=== PATIENT | female | born 1935 | race African-American/Black ===

== ENCOUNTER 2018-10-15 08:36 | Inpatient (IN) | payer MEDICARE, OTHER ==
[~2018-10-15] VITALS: Ht 165.1 cm; Wt 72.1 kg
[2018-10-15] VITALS (23 sets, daily range): BP systolic 80–117; BP diastolic 21–76
[~2018-10-15 08:36] MED LIST: BENA40TA17 PO; FURO-570 PO
--- NOTE | 2018-10-15 08:37 | NUR ---
PT BIBA BLS TO ER BED 04
--- NOTE | 2018-10-15 08:47 | NUR ---
Patient being evaluated by DR NY at bedside.
--- NOTE | 2018-10-15 08:50 | NUR ---
BIBA C/O HEADACHE & RIGHT HIP PAIN 12/02 S/P SYNCOPE & FALL X TODAY. C/O BLL SWOLLEN. A/O, TALKING, APPROPRIATE WITH QUESTIONS. PATIENT POSITIONED FOR COMFORT; BLL ELEVATED; BEDRAILS UP X2; BED DOWN. BRIGIDO CHAPA MADE AWARE OF PT STATUS. Addendum: 10/15/18 at 1031 by MED1 PT STATED SHE DID NOT TAKE WATER PILLX 2 DAYS.
[2018-10-15] MEDS ORDERED: NACL 0.9% 500 ML IV ONE (08:55)
--- NOTE | 2018-10-15 09:05 | NUR ---
LAB AT BEDSIDE
--- NOTE | 2018-10-15 09:10 | NUR ---
PT TAKEN TO CT VIA [facility], ACCOMPANIED BY ALCOHOL RUBBER
[2018-10-15 09:17] LABS: BASOPHILS # (AUTO) 0.1 K/uL (0.00-0.22); BASOPHILS % (AUTO) 1.2 % (0.0-2.0); EOSINOPHILS # (AUTO) 0.2 K/uL (0-0.4); EOSINOPHILS % (AUTO) 4.2 % (0.0-4.0); HEMATOCRIT 36.8 % (36-48); HEMOGLOBIN 11.9 g/dL (12.0-16.0); LYMPHOCYTES # (AUTO) 0.7 K/uL (2.5-16.5); LYMPHOCYTES % (AUTO) 14.2 % (20.5-51.1); MEAN CORPUSCULAR HEMOGLOBIN 29 pg (27-31); MEAN CORPUSCULAR HGB CONC 32 g/dL (33-37); MEAN CORPUSCULAR VOLUME 89.9 fL (80-94); MONOCYTES # (AUTO) 0.5 K/uL (0.8-1.0); MONOCYTES % (AUTO) 9.4 % (1.7-9.3); NEUTROPHILS # (AUTO) 3.7 K/uL (1.8-7.7); PLATELET COUNT (AUTO) 146 K/uL (140-450); RED BLOOD CELL COUNT(AUTO) 4.09 MIL/uL (4.20-5.40); RED CELL DISTRIBUTION WIDTH 21.5 % (11.6-13.7); WHITE BLOOD COUNT (AUTO) 5.2 K/uL (4.8-10.8)
[2018-10-15 09:26] LABS: CARBON DIOXIDE 26.4 mmol/L (21-32); CHLORIDE 102 mmol/L (98-107); CREATININE 1.8 mg/dL (0.6-1.3); GLUCOSE 131 mg/dL (74-106); POTASSIUM 3.4 mmol/L (3.5-5.1); SODIUM SERUM 141 mmol/L (136-145); UREA NITROGEN, BLOOD 16 mg/dL (7-18)
[2018-10-15 09:32] LABS: ALBUMIN 3.4 g/dL (3.4-5.0); ASPARTATE AMINOTRANSFERASE 61 U/L (15-37); TOTAL BILIRUBIN 2.2 mg/dL (0.0-1.0)
[2018-10-15 09:36] LABS: PROTHROMBIN TIME 13.4 secs (10.8-13.4)
[2018-10-15] MEDS ORDERED: NITROGLYCERIN 2% 1 GM PKT TP ONE (10:00)
[2018-10-15] MEDS ORDERED: ASPIRIN 81 MG TAB.CHEW PO ONE (10:00)
[2018-10-15 10:10] LABS: APPEARANCE,URINE CLEAR (CLEAR); BILIRUBIN,URINE 2+ (NEGATIVE); BLOOD, URINE 1+ (NEGATIVE); COLOR,URINE ORANGE (YELLOW); LEUKOCYTE ESTERASE ,URINE NEGATIVE (NEGATIVE); NITRITE, URINE NEGATIVE (NEGATIVE); PH,URINE 5.5 (5.0-9.0); UGLUCOSE NEGATIVE (NEGATIVE)
[2018-10-15 10:22] LABS: RBC,URINE 0-5 /HPF (0-5); WBC,URINE 0-5 /HPF (0-5)
[2018-10-15] MEDS ORDERED: LOSA25TA43 PO (11:03)
[2018-10-15] MEDS ORDERED: ALBU117P IH (11:03)
[2018-10-15] MEDS ORDERED: APIX5TAB PO (11:03)
[2018-10-15] MEDS ORDERED: ATOR40TA PO (11:03)
[2018-10-15] MEDS ORDERED: CARV6.25 PO (11:03)
[2018-10-15] MEDS ORDERED: MEXI150C2 PO (11:03)
--- NOTE | 2018-10-15 11:20 | NUR ---
Patient will be admitted to care of DR TINOCO. Admited to TELE. Will go to room 127A. Belongings list completed. Report to VICKY WOODY.
--- NOTE | 2018-10-15 11:40 | NUR ---
PT ARRIVED FROM ER IN [facility] [place] PT AWAKE ALERT, OX4, RESP EVEN UNALBORED ON 2L NC, SKIN WARM DRY COLOR WNL, PT PLACED ON FILM INSPECTOR, PT DENIES CHEST PAIN OR DISCOMFORT, PT TRANSFERS SELF FROM [facility] [place] TO BED BY MANINDER OVER, PT ORIENTED TO ROOM AND FLOOR, ALL SAFETY MEASURES IN PLACE, WILL CONTINUE OT RADHA
[2018-10-15] MEDS ORDERED: ONDANSETRON 4 MG/2 ML VIAL IVP PRN (12:15)
[2018-10-15] MEDS ORDERED: NACL 0.9% 1,000 ML IV SCH (12:15)
[2018-10-15] MEDS ORDERED: ALBUTEROL SULFATE 90 MCG IH PRN (12:20)
[2018-10-15] MEDS ORDERED: FUROSEMIDE 40 MG TAB PO SCH (12:20)
--- NOTE | 2018-10-15 12:50 | NUR ---
PT WANTS NEW IV, PT DOES NOT LIKE THE CURRENT IV POSITION IN R AC, PT PEELED OFF DRESSING AROUND IV, PT REQUESTS NEW IV STARTED TO LEFT ARM, NEW IV STARTED TO LEFT FA 22G, PT MINERVA WELL, RAC IV REMOVED, CATH TIP INTACT, BLEEDING CONTROLLED.
[2018-10-15] MEDS ORDERED: CLINICAL MONITORING MC PRN (13:00)
[2018-10-15] MEDS ORDERED: COMMUNICATION ORDER MC PRN (14:20)
[2018-10-15] MEDS ORDERED: CARVEDILOL 6.25 MG TAB PO SCH (15:00)
[2018-10-15] MEDS ORDERED: LOSARTAN 25 MG TAB PO SCH (15:00)
[2018-10-15] MEDS ORDERED: MEXILETINE 150MG CAP PO SCH (15:11)
[2018-10-15] MEDS ORDERED: NACL 0.9% 500 ML IV SCH (15:30)
--- NOTE | 2018-10-15 15:44 | NUR ---
DR FRIEDMAN, Y NOTIFIED OF PT'S EPISODE OF V FIB, VERBAL ORDER RECIEVED. OK TO GIVE HOME CARDIAC MEDS AND GIVE 250ML NS BOLUS X1 FOR DECREASED BP 92/58. PT SLEEPING QUIETLY, AROUSES EASILY BY VOICE, PT REMAINS ON LOOM SETTER, WILL CONTINUE TO MONITOR
--- NOTE | 2018-10-15 16:05 | NUR ---
PT TRANSFERRED ICU #1 ACCOMPANIED BY RN ON MACHINE GUNNER, PT AWAKE ALERT, VITALS STABLE, REPORT GIVEN TO BONG MORGAN.
--- NOTE | 2018-10-15 16:10 | NUR ---
RECEIVED PT TRANSFERRED FROM ROOM 127A, REPORT OBTAINED AT BEDSIDE, PT IS AAOX4, ABLE TO FOLLOW COMMANDS AND MAKE NEEDS KNOWN, VSS, C/O LOWER BACK PAIN, 3/10 TOLERABLE, NO S/S OF DISTRESS, DIMINISHED LUNG SOUNDS YOEL,ON O2 AT 2L VIA NC, O2 SAT 96%, DENIES CHEST PAIN, A-FIB WITH PVC'S ON HIGH ENERGY FORMING EQUIPMENT OPERATOR, PACEMAKER NOTED, SOFT ABDOMEN WITH ACTIVE BOWEL SOUNDS, INCONTINENT WITH B&B'S , ABLE TO MOVE ALL EXTREMITIES, SLIGHT WEAKNESS NOTED, SKIN IS WARM AND DRY TO TOUCH, INTACT, IV SITE TO LEFT FOREARM, 22GA, PATENT AND SL. HOB ELEVATED 30 DEGREES, POSITION CHANGED FOR COMFORT, SAFETY MEASURES IN PLACE, WILL CONTINUE TO MONITOR.
[2018-10-15] MEDS ORDERED: AMIODARONE 150 MG in DEXTROSE 5% 100 ML IV SCH (16:30)
[2018-10-15] MEDS ORDERED: AMIODARONE 450 MG in DEXTROSE 5% 250 ML IV SCH (16:45)
--- NOTE | 2018-10-15 17:05 | NUR ---
DR. TINOCO CAME IN TO SEE PT AT BEDSIDE, WILL FOLLOW UP WITH NEW ORDERS.
--- NOTE | 2018-10-15 18:00 | NUR ---
PT IS SITTING UP EATING DINNER AT BEDSIDE, STEPHEN NOTED, VSS, STILL C/O LOWER BACK PAIN COMES AND GOES.
--- NOTE | 2018-10-15 19:00 | NUR ---
REPORT RECEIVED FROM AM NURSE. PT AT BED RESTING, IV FLUIDS RUNNING, PT ALERT AND ORIENTED X4, CALM, COOPERATIVE, FOLLOWS COMMANDS, PERRLA 3MM, S1 S2 PRESENT, HR REGULAR, FULL, PULSE 2+ UPPER EXTREMITIES BILATERAL, 2+ LOWER EXTREMITIES BILATERAL, CAP REFILL <3S, PULSES REGULAR, FULL, SKIN INTACT, NON-ELASTIC, NO EDEMA PRESENT, BOWEL SOUNDS PRESENT AT ALL QUADRANTS, ACTIVE, PT ON O2 NC RUNNING AT 2L, MUSCLE STRENGTH 5/5 ON UPPER EXTREMITIES AND LOWER EXTREMITIES, WILL CONTINUE TO MONITOR
--- NOTE | 2018-10-15 19:15 | NUR ---
REPORT GIVEN TO MATERIALS AND PROCESSES MANAGER NURSE FOR CONTINUE OF CARE, PT IS IN STABLE CONDITION AT THIS TIME.
[2018-10-15] MEDS: APIXABAN 2.5 MG TAB PO SCH (20:37)
[2018-10-15] MEDS: MEXILETINE 150MG CAP PO SCH (20:38)
[2018-10-15] MEDS: ATORVASTATIN 20 MG TAB PO SCH (20:39)
--- NOTE | 2018-10-15 20:50 | NUR ---
BP 83/53, AMIODARONE DRIP HOLD OR STOPPED; DR. Johny FRIEDMAN WAS INFORMED AND AWARE.
[2018-10-15] MEDS: CARVEDILOL 6.25 MG TAB PO SCH (20:57)
[2018-10-15] MEDS ORDERED: NON-FORMULARY ITEM (Apixaban (Eliquis) 5 MG) PO SCH (21:00)
--- NOTE | 2018-10-15 21:00 | NUR ---
PT SLEEPING AT BED. VS WNL. WILL CONTINUE TO MONITOR
--- NOTE | 2018-10-15 23:00 | NUR ---
PT SLEEPING AT BED, VS WNL, WILL CONTINUE TO MONITOR
[2018-10-16] VITALS (21 sets, daily range): BP systolic 81–164; BP diastolic 37–71
--- NOTE | 2018-10-16 01:00 | NUR ---
PT SLEEPING AT BED, VS WNL, WILL CONTINUE TO MONITOR.
[2018-10-16 05:15] LABS: BASOPHILS % (AUTO) 0.5 % (0.0-2.0); EOSINOPHILS # (AUTO) 0.1 K/uL (0-0.4); EOSINOPHILS % (AUTO) 1.9 % (0.0-4.0); HEMATOCRIT 35.2 % (36-48); HEMOGLOBIN 11.6 g/dL (12.0-16.0); LYMPHOCYTES # (AUTO) 0.5 K/uL (2.5-16.5); LYMPHOCYTES % (AUTO) 12.4 % (20.5-51.1); MEAN CORPUSCULAR HEMOGLOBIN 29 pg (27-31); MEAN CORPUSCULAR HGB CONC 33 g/dL (33-37); MEAN CORPUSCULAR VOLUME 89.3 fL (80-94); MONOCYTES # (AUTO) 0.5 K/uL (0.8-1.0); MONOCYTES % (AUTO) 11.8 % (1.7-9.3); NEUTROPHILS # (AUTO) 3.2 K/uL (1.8-7.7); NEUTROPHILS % (AUTO) 73.4 % (42.2-75.2); PLATELET COUNT (AUTO) 132 K/uL (140-450); RED BLOOD CELL COUNT(AUTO) 3.94 MIL/uL (4.20-5.40); RED CELL DISTRIBUTION WIDTH 20.9 % (11.6-13.7); WHITE BLOOD COUNT (AUTO) 4.4 K/uL (4.8-10.8)
[2018-10-16 06:09] LABS: PROTHROMBIN TIME 15.5 secs (10.8-13.4)
[2018-10-16 06:54] LABS: ALBUMIN 2.9 g/dL (3.4-5.0); ANION GAP 15.1 (8-16); ASPARTATE AMINOTRANSFERASE 124 U/L (15-37); CARBON DIOXIDE 24.6 mmol/L (21-32); CHLORIDE 104 mmol/L (98-107); GLUCOSE 92 mg/dL (74-106); POTASSIUM 3.7 mmol/L (3.5-5.1); SODIUM SERUM 140 mmol/L (136-145); TOTAL BILIRUBIN 2.6 mg/dL (0.0-1.0); UREA NITROGEN, BLOOD 19 mg/dL (7-18)
[2018-10-16 07:07] LABS: MAGNESIUM 2.1 mg/dL (1.8-2.4); THYROID STIMULATING HORMONE 9.01 uIU/mL (0.34-3.74)
--- NOTE | 2018-10-16 07:15 | NUR ---
RECEIVED REPORT FROM JIG FITTER NURSE AT BEDSIDE, PT IS AAOX4, ABLE TO FOLLOW COMMANDS AND MAKE NEEDS KNOWN, VSS, C/O LOWER BACK PAIN, 3/10 TOLERABLE, NO S/S OF DISTRESS, DIMINISHED LUNG SOUNDS YOEL,ON O2 AT 2L VIA NC, O2 SAT 100%, DENIES CHEST PAIN, A-FIB WITH PACED RHYTHMS ON REAL TIME ANALYST, SOFT ABDOMEN WITH ACTIVE BOWEL SOUNDS, INCONTINENT WITH B&B'S , ABLE TO MOVE ALL EXTREMITIES, SLIGHT WEAKNESS NOTED, SKIN IS WARM AND DRY TO TOUCH, INTACT, IV SITE TO LEFT FOREARM, 22GA, PATENT AND SL. HOB ELEVATED 30 DEGREES, POSITION CHANGED FOR COMFORT, SAFETY MEASURES IN PLACE, CALL LIGHT WITHIN REACH, WILL CONTINUE TO MONITOR.
--- NOTE | 2018-10-16 07:20 | NUR ---
PACEMAKER INTERROGATION COULD NOT COMPLETED AT THIS TIME DUE TO COULD NOT MATCH, WILL CONTACT FAMILY ABOUT THE PACEMAKER INFORMATION.
--- NOTE | 2018-10-16 08:07 | NUR ---
PATIENT HAS BEEN SCREENED AND CATEGORIZED MODERATE NUTRITION RISK. PATIENT WILL BE SEEN WITHIN 3-5 DAYS OF ADMISSION. 10/17/18ABBI TAN RD
[2018-10-16] MEDS ORDERED: ENOXAPARIN 40 MG/0.4 ML SYR SUBQ SCH (09:00)
[2018-10-16] MEDS ORDERED: MEXILETINE HCL PO SCH (09:00)
[2018-10-16] MEDS ORDERED: LOSARTAN POTASSIUM 25 MG PO SCH (09:00)
[2018-10-16] MEDS: LOSARTAN 25 MG TAB PO SCH (09:20)
[2018-10-16] MEDS: CARVEDILOL 6.25 MG TAB PO SCH ×2 (09:21→21:00)
[2018-10-16] MEDS: APIXABAN 2.5 MG TAB PO SCH ×2 (09:23→21:24)
[2018-10-16] MEDS: MEXILETINE 150MG CAP PO SCH ×2 (09:25→21:38)
--- NOTE | 2018-10-16 10:00 | NUR ---
DR. TINOCO CAME IN TO SEE PT AT BEDSIDE, UPDATED CONDITION, WILL FOLLOW UP WITH NEW ORDERS.
[2018-10-16] MEDS: ACETAMINOPHEN 325 MG TAB PO PRN (10:12)
--- NOTE | 2018-10-16 11:30 | NUR ---
RECEIVED PHONE REPORT FROM ICU NURSE, EDDIE, ABOUT PT'S TRANSFER TO TELE.
--- NOTE | 2018-10-16 12:45 | NUR ---
RECEIVED PT FROM THE ICU NURSE. PT IS AWAKE BUT DROWSY. PT'S BP IS 87/54 AT THIS TIME, OTHERWISE NON-SYMPTOMATIC. IV SITE IS IN THE LFA 22 G. WILL NOTIFY MD ABOUT PT'S LOW BP.
--- NOTE | 2018-10-16 12:45 | NUR ---
TRANSFERRED PT TO ROOM 121B VIA BED, REPORT GIVEN TO BONG HA AT BEDSIDE, ALL BELONGS GOES WITH PT, NO INCIDENT OCCUR AT THIS TIME.
--- NOTE | 2018-10-16 12:50 | NUR ---
PT'S VS UPON TRANSFER TO [facility]: BP 87/54, HR 70, O2 99 ON 2L O2, TEMP 96.0, RR 18.
--- NOTE | 2018-10-16 13:22 | NUR ---
NOTIFIED DR TINOCO OVER THE PHONE ABOUT PT'S LOW BP, HE ORDERED IV NS 70 ML/HR. WILL CONTINUE TO MONITOR PT.
[2018-10-16] MEDS: NACL 0.9% 1,000 ML IV SCH (14:18)
--- NOTE | 2018-10-16 14:21 | NUR ---
PT SLEEPING QUIETLY AT THIS TIME, NO S/S OF ANY ACUTE DISTRESS, NO SOB. WILL CONTINUE TO MONITOR.
--- NOTE | 2018-10-16 15:13 | NUR ---
PT'S BP IS 81/47 AT THIS TIME. IV NS IS INFUSING PER MD ORDER, AND PT IS DRINKING GRAPE JUICE AND WATER. CALL LIGHT IS WITHIN REACH. WILL CONTINUE TO MONITOR PT.
--- NOTE | 2018-10-16 17:31 | NUR ---
PT'S FAMILY MEMBERS VISITING AT BEDSIDE. PT WAS REPOSITIONED IN BED.
--- NOTE | 2018-10-16 17:53 | NUR ---
PT'S DINNER TRAY SET UP, FOOD CUT UP, AND PT EATING AT THIS TIME. PT'S FAMILY MEMBERS ARE STILL VISITING AT BEDSIDE.
--- NOTE | 2018-10-16 18:27 | NUR ---
RECHECKED PT'S BP. BP OVER THE UPPER EXTREMITIES IS: 80/48 AND 81/53. OT JUST ATE DINNER AND IS ASYMPTOMATIC, TALKING WITH HER FAMILY. BP OVER THE L CALF IS 114/69. DR TINOCO PAGED TO NOTIFY OF PT'S BP, AWAITING CALL BACK. Addendum: 10/16/18 at 1838 by Lia Kenny RN DR SALVADOR (BREAKFAST SERVER FOR DR TINOCO) CALLED BACK AND WAS NOTIFIED OF PT'S LOW BP. HE ORDERED 250 ML NS BOLUS, TO RECHECK HER BP IN AN HOUR AND REPORT THE RESULTS.
[2018-10-16] MEDS ORDERED: NACL 0.9% 250 ML IV ONE (19:10)
--- NOTE | 2018-10-16 19:10 | NUR ---
ENDORSED PT TO BALANCE BRIDGE INSPECTOR NURSE IN STABLE CONDITION. BALANCE BRIDGE INSPECTOR NURSE AWARE OF PT'S LOW BP'S, AND AWARE TO NOTIFY DR SALVADOR OF PT'S BP AFTER NS BOLUS IS FINISHED.
--- NOTE | 2018-10-16 19:11 | NUR ---
RECEIVED REPORT FROM AM SHIFT AT BEDSIDE, PT IS AAOX3, ON TELE ABLE TO FOLLOW COMMANDS AND MAKE NEEDS KNOWN, VSS, C/O LOWER BACK PAIN, 3/10 TOLERABLE, NO S/S OF DISTRESS, DIMINISHED LUNG SOUNDS YOEL,ON O2 AT 2L VIA NC, O2 SAT 100%, DENIES CHEST PAIN, A-FIB WITH PACED RHYTHMS ON HYDROGEN POWER PLANT MANAGER, SOFT ABDOMEN WITH ACTIVE BOWEL SOUNDS, INCONTINENT WITH B&B'S , ABLE TO MOVE ALL EXTREMITIES, SLIGHT WEAKNESS NOTED, SKIN IS WARM AND DRY TO TOUCH, INTACT, IV SITE TO LEFT FOREARM, 22GA, PATENT AND SL. HOB ELEVATED 30 DEGREES, POSITION CHANGED FOR COMFORT, SAFETY MEASURES IN PLACE, CALL LIGHT WITHIN REACH, WILL CONTINUE TO MONITOR.
--- NOTE | 2018-10-16 21:00 | NUR ---
HELD BP MEDS; BP 93/68 MMHG, HR 71 WILL INFORM DRTomas CONTACTED RN PRACTITIONER EARLIER NO CALL BACK YET
--- NOTE | 2018-10-16 21:03 | NUR ---
O2 TURNED DOWN BY RT W/ 99% @ O2 SAT FROM 2 LPM TO 1 LPM
[2018-10-16] MEDS: ATORVASTATIN 20 MG TAB PO SCH (21:24)
--- NOTE | 2018-10-16 22:05 | NUR ---
SEEN BY DR. Karthik FRIEDMAN AT BEDSIDE
--- NOTE | 2018-10-16 23:59 | NUR ---
BP= 86/56 ' HR = 71; NO SX'S OF HYPOTENSION. O2 SAT 95% W/ 1 O2 LPM VIA NC. PT AWAKE ALERT AND COOPERATIVE. FREQUENT TURNING REQUESTED DONE.
[2018-10-17] VITALS (30 sets, daily range): BP systolic 85–128; BP diastolic 46–81
--- NOTE | 2018-10-17 02:00 | NUR ---
CALLED [facility]. SALVADOR NO REPLY
[2018-10-17] MEDS: ALBUTEROL 0.083% 2.5 MG/3 ML NEBU INH PRN ×4 (03:02→19:32)
[2018-10-17] MEDS: NACL 0.9% 1,000 ML IV SCH ×3 (04:13→21:05)
[2018-10-17 06:30] LABS: BASOPHILS % (AUTO) 0.8 % (0.0-2.0); EOSINOPHILS # (AUTO) 0.2 K/uL (0-0.4); EOSINOPHILS % (AUTO) 5.1 % (0.0-4.0); HEMATOCRIT 35.8 % (36-48); HEMOGLOBIN 11.6 g/dL (12.0-16.0); LYMPHOCYTES # (AUTO) 0.2 K/uL (2.5-16.5); LYMPHOCYTES % (AUTO) 5.4 % (20.5-51.1); MEAN CORPUSCULAR HEMOGLOBIN 29 pg (27-31); MEAN CORPUSCULAR HGB CONC 33 g/dL (33-37); MEAN CORPUSCULAR VOLUME 89.5 fL (80-94); MONOCYTES # (AUTO) 0.4 K/uL (0.8-1.0); NEUTROPHILS # (AUTO) 3.5 K/uL (1.8-7.7); NEUTROPHILS % (AUTO) 79.7 % (42.2-75.2); PLATELET COUNT (AUTO) 130 K/uL (140-450); RED CELL DISTRIBUTION WIDTH 21.2 % (11.6-13.7); WHITE BLOOD COUNT (AUTO) 4.4 K/uL (4.8-10.8)
[2018-10-17 06:54] LABS: ANION GAP 14.1 (8-16); CHLORIDE 102 mmol/L (98-107); CREATININE 2.2 mg/dL (0.6-1.3); GLUCOSE 80 mg/dL (74-106); POTASSIUM 4.1 mmol/L (3.5-5.1); SODIUM SERUM 137 mmol/L (136-145); UREA NITROGEN, BLOOD 20 mg/dL (7-18)
--- NOTE | 2018-10-17 07:20 | NUR ---
RECEIVED BEDSIDE REPORT FROM SHIELD CLEANER NURSE. PT IS ASLEEP, NO S/S OF ACUTE DISTRESS OR SOB NOTED. PT IS ON 2L O2 NC, SKIN INTACT. IV SITE ON THE LFA 22 G INFUSING NS 70 ML/HR. PER SHIELD CLEANER NURSE, PT WAS SEEN BY DR FRIEDMAN LAST NIGHT. FALL PRECAUTIONS ARE IN PLACE, CALL LIGHT IS WITHIN REACH. WILL CONTINUE TO MONITOR.
[2018-10-17] MEDS: FUROSEMIDE 40 MG TAB PO SCH (09:00)
[2018-10-17] MEDS: APIXABAN 2.5 MG TAB PO SCH ×2 (09:00→20:16)
[2018-10-17] MEDS: CARVEDILOL 6.25 MG TAB PO SCH ×2 (09:00→20:17)
[2018-10-17] MEDS: MEXILETINE 150MG CAP PO SCH ×2 (09:00→20:17)
[2018-10-17] MEDS: LOSARTAN 25 MG TAB PO SCH (09:00)
--- NOTE | 2018-10-17 09:54 | NUR ---
PT CLEANED, CHANGED, AND REPOSITED IN BED. ORAL CARE PROVIDED. PT URINATED 100 ML OF DARK KAREN URINE. PT'S BP IS 84/51 AT THIS TIME. WILL PAGE MD TO NOTIFY MD OF LOW BP
--- NOTE | 2018-10-17 10:08 | NUR ---
JUST SPOKE WITH DR TINOCO, NOTIFIED HIM OF PT'S BP 84/51. ASKED IF PT NEEDS TO BE TRANSFERRED TO ICU, DR TINOCO SAYS NO NEED TO TRANSFER PT TO ICU. HE ORDERED 250 ML ALBUMIN 5% TO RUN OVER 2 HOURS. WILL CONTINUE TO MONITOR PT.
--- NOTE | 2018-10-17 10:34 | NUR ---
TRANSFERRING TO PATIENT ICU-1DUE TO HYPOVOLEMIC STATUS PATIENT ON SUPPLEMENTAL OXYGEN VIA E-TANK AT 2LPM VIA NC SATURATION 98% HR 71 TOLERATED TRANSFER WELL WITHOUT INCIDENT
[2018-10-17] MEDS ORDERED: ALBUMIN HUMAN 5 % 250 ML IV SCH ×2 (11:00→16:30)
--- NOTE | 2018-10-17 11:00 | NUR ---
TRANSFERRED IN FROM TELE. THIS 83 YEAR OLD BLACK FEMALE PER BED ACCOMPANIED BY TELE RNS DUE TO HYPOTENSION. PT. IS AWAKE AND ALERT. BAUTISTA. HAND GRASPS EQUAL. IV 0.9 NS INFUSING VIA LEFT FOREARM IV SITE PLACED ON BRIM SHAPER SHOWS 100% PACED RHYTHM. HOB ELEVATED. STATES SHE GETS SOB WHEN HOB IS DOWN. BP 95/57. DENIES ANY CHEST DISCOMFORTS.
--- NOTE | 2018-10-17 11:06 | NUR ---
PT TRANSFERRED TO ICU BED 1 FOR CLOSE MONITORING OF BLOOD PRESSURE. DR TINOCO IS AWARE.
--- NOTE | 2018-10-17 11:20 | NUR ---
IV SITE LEAKING. DC'D. NEW IV SITE STARTED ON RT FA WITH G 20 ANGIO. X 1 ATTEMPT. ALBUMIN 5% 250 ML IV STARTED AT 100 ML/HR.
--- NOTE | 2018-10-17 11:45 | NUR ---
DR. TINOCO HERE TO SEE AND EXAMINE PT.
--- NOTE | 2018-10-17 12:00 | NUR ---
C/O FEELING COLD. ASKING FOR WARM BLANKETS. APPLIED.
--- NOTE | 2018-10-17 13:30 | NUR ---
LOERA CATH. INSERTED ASEPTICALLY. OBTAINED 50 ML OF SL KAREN URINE. Addendum: 10/17/18 at 1524 by Debi Colvin RN 15ML URINE NOT 50ML.
[2018-10-17] MEDS: ACETAMINOPHEN 325 MG TAB PO PRN (13:44)
--- NOTE | 2018-10-17 15:20 | NUR ---
TOTAL URINE OUTPUT SINCE INSERTION OF FC 20 ML. BP 89/[address] WILL CALL [address] TINOCO FOFR UPDATE SOON CXR REPORT IS AVAILABLE.
--- NOTE | 2018-10-17 15:59 | NUR ---
DR. TINOCO PAGED, UPDATED ON PT'S CONDITION. AWARE OF PT'S BP AND URINE OUTPUT OF 20. PER DR. TINOCO WILL CHECK MAP AND KEEP MAP 65 AND ABOVE.
--- NOTE | 2018-10-17 16:00 | NUR ---
IVF INCREASED TO 100 ML/HR.
--- NOTE | 2018-10-17 16:18 | NUR ---
ALBUMIN 5% 250 ML STARTED AT 100 ML/HR.
--- NOTE | 2018-10-17 16:30 | NUR ---
PM CARE DONE. REPOSITIONED.
--- NOTE | 2018-10-17 17:05 | NUR ---
SHOVEL MECHANIC AT BEDSIDE TO DO ECHOCARDIOGRAM.
--- NOTE | 2018-10-17 17:48 | NUR ---
ECHOCARDIOGRAM COMPLETED. NOTIFIED BY NUCLEAR MEDICINE TECH OF CRITICAL FINDIN% EJECTION FRACTION, SEVERE TRICUSPID REGURGITATION, MODERATE MITRAL REGURGITATION. WILL NOTIFY DR. FRIEDMAN OF FINDINGS.
--- NOTE | 2018-10-17 17:53 | NUR ---
CONTACTED DR. FRIEDMAN AND INFORMED HIM OF THE PRELIMINARY RESULTS OF THE ECHOCARDIOGRAM. RECOMMENDED CONTINUING COURSE OF TREATMENT.
--- NOTE | 2018-10-17 17:55 | NUR ---
ECHO COMPLETED. NOTIFIED RN. QURESHI AND BNOG PATEL ON CRITICIAL FINDINGS. NOTIFIED DR. FRIEDMAN WELL
--- NOTE | 2018-10-17 18:50 | NUR ---
DR. TIPTON AT BEDSIDE. PT EXAMINED. PLAN OF CARE DISCUSSED WITH PT. AWAITING ORDERS.
[2018-10-17] MEDS ORDERED: DOPamine 400 MG/D5W PREMIX 250 ML IV SCH (19:10)
--- NOTE | 2018-10-17 19:12 | NUR ---
REPORT GIVEN TO WINDLASSER NURSE FOR CONTINUITY OF CARE, PT IS IN STABLE CONDITION AT THIS TIME.
--- NOTE | 2018-10-17 19:30 | NUR ---
RECEIVED REPORT FROM MORNING RN, ROSETTA/VAISHNAVI, FOR CONTINUITY OF CARE. VS STABLE AT THIS TIME. AFEBRILE. FLACC 0. PT DENIES ANY DISCOMFORT AT THIS TIME. PT ABLE TO MAKE NEEDS KNOWN. PERRL. PT ON OXYGEN AT 2L/MIN VIA NC. SYMMETRICAL CHEST RISE NOTED. PT DENIES ANY DIFFICULTY BREATHING AT THIS TIME. S1+S2 HEARD. PACED RHYTHM ON MONITOR. PULSES PALPABLE IN EXTREMITIES. ABD ROUND, SOFT AND NONDISTENDED. BS ACTIVE IN ALL QUADRANTS. NO BM NOTED AT THIS TIME. RECEIVED PT WITH RIGHT HAND PERIPHERAL IV ACCESS, 20G. NS AT 100ML/HR. . LOERA CATHETER IN PLACE, DRAINING LIGHT KAREN AND CLEAR URINE. KEPT HOB AT 30 DEGREES. ALL SAFETY PRECAUTIONS ARE IN PLACE. BED AT LOWEST POSSIBLE POSITION. WILL CONTINUE TO MONITOR PT.
--- NOTE | 2018-10-17 19:38 | NUR ---
RECEIVED PATIENT ON 2L NASAL CANNULA, PULSE OX SAT 99%. BREATH SOUNDS CLEAR. PATIENT COMPLAINS OF FEELING SHORT OF BREATH. PRN BREATHING TX ADMINISTERED. TOLERATED TX WELL, NO ADVERSE SIDE EFFECTS. NO RESPIRATORY DISTRESS NOTED AT THIS TIME. WILL CONTINUE TO MONITOR.
--- NOTE | 2018-10-17 22:50 | NUR ---
NO CHANGE IN PT'S CONDITION AT THIS TIME. PT REMAINS ON DOPAMINE AT 3MCG. IV SITE REMAINS INTACT AND ASYMPTOMATIC. PT EYES ARE CLOSED. DOES NOT APPEAR TO BE EXPERIENCING ANY DISCOMFORT. RESPIRATIONS ARE EVEN AND UNLABORED. OXYGEN SATURATION WNL. WILL CONTINUE TO MONITOR PT.
[2018-10-18] VITALS (42 sets, daily range): BP systolic 84–141; BP diastolic 29–89
--- NOTE | 2018-10-18 00:20 | NUR ---
PT'S EYES ARE CLOSED. LAYING IN BED. DOES NOT APPEAR TO BE EXPERIENCING ANY DISCOMFORT. PT AROUSABLE TO NAME. IV SITE IS INTACT AND ASYMPTOMATIC. PT DENIES EXPERIENCING ANY PAIN FROM THE IV SITE. WILL CONTINUE TO MONITOR.
--- NOTE | 2018-10-18 03:15 | NUR ---
NO CHANGE IN PT'S CONDITION AT THIS TIME. PT STILL ON DOPAMINE DRIP AT 3MCG. PT WAS REPOSITIONED. ALL SAFETY PRECAUTIONS REMAINS IN PLACE. BED AT LOWEST POSSIBLE POSITION. RESPIRATIONS ARE EVEN AND UNLABORED. PT DOES NOT APPEAR TO BE EXPERIENCING ANY DISCOMFORT AT THIS TIME.
[2018-10-18] MEDS: ACETAMINOPHEN 325 MG TAB PO PRN (06:00)
[2018-10-18 06:25] LABS: CHLORIDE 101 mmol/L (98-107); CREATININE 2.2 mg/dL (0.6-1.3); GLUCOSE 104 mg/dL (74-106); SODIUM SERUM 133 mmol/L (136-145); UREA NITROGEN, BLOOD 20 mg/dL (7-18)
[2018-10-18 06:28] LABS: MAGNESIUM 1.8 mg/dL (1.8-2.4); PHOSPHORUS 3.3 mg/dL (2.5-4.9)
[2018-10-18 06:36] LABS: BASOPHILS % (AUTO) 0.7 % (0.0-2.0); EOSINOPHILS # (AUTO) 0.1 K/uL (0-0.4); HEMATOCRIT 36.7 % (36-48); HEMOGLOBIN 11.9 g/dL (12.0-16.0); LYMPHOCYTES # (AUTO) 0.6 K/uL (2.5-16.5); LYMPHOCYTES % (AUTO) 10.2 % (20.5-51.1); MEAN CORPUSCULAR HEMOGLOBIN 29 pg (27-31); MEAN CORPUSCULAR HGB CONC 33 g/dL (33-37); MEAN CORPUSCULAR VOLUME 89.2 fL (80-94); MONOCYTES # (AUTO) 0.5 K/uL (0.8-1.0); MONOCYTES % (AUTO) 7.5 % (1.7-9.3); NEUTROPHILS % (AUTO) 80.6 % (42.2-75.2); PLATELET COUNT (AUTO) 149 K/uL (140-450); RED BLOOD CELL COUNT(AUTO) 4.11 MIL/uL (4.20-5.40); RED CELL DISTRIBUTION WIDTH 21.2 % (11.6-13.7); WHITE BLOOD COUNT (AUTO) 6.2 K/uL (4.8-10.8)
[2018-10-18] MEDS: ALBUTEROL 0.083% 2.5 MG/3 ML NEBU INH PRN ×2 (07:12→21:06)
--- NOTE | 2018-10-18 07:26 | NUR ---
REPORT GIVEN TO MORNING RNABRAN, FOR CONTINUITY OF CARE. VS STABLE AT THIS TIME. ENDORSED THAT PT HAS A CELLPHONE AT BEDSIDE.
--- NOTE | 2018-10-18 07:30 | NUR ---
PT REQUESTS LOERA TO BE DISCONTINUED. PT STATES THAT LOERA IS UNCOMFORTABLE. PT EDUCATED ON NECESSITY OF LOERA FOR TRACKING ACCURATE OUTPUT PARTICULARLY WITH HER CONDITION.
--- NOTE | 2018-10-18 08:00 | NUR ---
RECEIVED REPORT FROM EVENING RN (NICOLETTE) FOR CONTINUITY OF CARE. VS STABLE AT THIS TIME. AFEBRILE. PT DENIES ANY DISCOMFORT AT THIS TIME. A&OX3. PT ABLE TO MAKE NEEDS KNOWN. PERRL, RIGHT PUPIL 3MM, SCLERA LIGHT YELLOW, LEFT PUPIL 3MM, SCLERA LIGHT YELLOW. PT ON OXYGEN AT 2L/MIN VIA NC. SYMMETRICAL CHEST RISE NOTED, CLEAR AND EQUAL BILATERAL. PT DENIES ANY DIFFICULTY BREATHING AT THIS TIME. S1+S2 HEARD. PACED RHYTHM ON MONITOR. PULSES PALPABLE IN UPPER AND LOWER EXTREMITIES. ABD ROUND, SOFT AND NONDISTENDED, NO BELLY BUTTON PRESENT (HERNIA REPAIR AT AGE 20). BS ACTIVE IN ALL QUADRANTS. NO BM NOTED AT THIS TIME. SKIN INTACT. RECEIVED PT WITH RIGHT HAND PERIPHERAL IV ACCESS, 20G. NS AT 100ML/HR. DOPAMINE AT 3MCG/KG/MIN. LOERA CATHETER IN PLACE, DRAINING SCANT LIGHT KAREN AND CLEAR URINE. KEPT HOB AT 30 DEGREES. ALL SAFETY PRECAUTIONS ARE IN PLACE. SIDE RAILS UP X 3. BED AT LOWEST POSSIBLE POSITION. WILL CONTINUE TO MONITOR PT.
[2018-10-18] MEDS: CARVEDILOL 6.25 MG TAB PO SCH ×3 (08:12→20:27)
[2018-10-18] MEDS: FUROSEMIDE 40 MG TAB PO SCH ×2 (08:12→20:06)
[2018-10-18] MEDS: MEXILETINE 150MG CAP PO SCH ×2 (08:13→20:08)
[2018-10-18] MEDS: APIXABAN 2.5 MG TAB PO SCH ×2 (08:17→20:07)
--- NOTE | 2018-10-18 08:25 | NUR ---
PT AGAIN REQUESTS LOERA CATHETER TO BE REMOVED. PT STATES "I DON'T CARE, I'M NOT DOING ANYTHING UNTIL YOU TAKE IT OUT." PT REFUSES TO TAKE PO MEDICATIONS UNTIL LOERA CATHETER IS REMOVED. RE-EDUCATED ABOUT THE IMPORTANCE OF LOERA CATHETER TO MONITOR ACCURATE OUTPUT ESPECIALLY WITH HER CONDITION. PT CONTINUES TO REFUSE TREATMENT. LOERA CATHETER REMOVED AND INTACT. PT TOLERATED THE PROCEDURE WELL.
--- NOTE | 2018-10-18 08:30 | NUR ---
PT STATES THAT SHE DOES NOT WANT CONTINUOUS IV FLUIDS AND MEDICATIONS ANYMORE. PT EDUCATED ON THE IMPORTANCE OF MAINTENANCE FLUIDS AND DOPAMINE FOR HER CONDITION.
--- NOTE | 2018-10-18 08:45 | NUR ---
PT REFUSES TO TAKE PO MEDICATIONS UNLESS CONTINUOUS IV MEDICATIONS AND FLUIDS ARE STOPPED AND DISCONNECTED. PT RE-EDUCATED ON THE IMPORTANCE OF FLUIDS AND MEDICATIONS ESPECIALLY CONSIDERING HER MEDICAL CONDITION. PT CONTINUES TO REFUSE TREATMENT UNLESS IV LINES ARE STOPPED AND DISCONNECTED. PT STATES "I WILL DRINK ENOUGH WATER TO MAINTAIN MY FLUIDS." IV LINES STOPPED AND DISCONNECTED. PT AGREES TO TAKE PO MEDICATIONS. PO MEDS ADMINISTERED.
--- NOTE | 2018-10-18 08:48 | NUR ---
DR. TIPTON IS PAGED REGARDING PT'S REFUSAL OF CONTINUOUS IV MEDICATIONS AND FLUIDS AND THE REMOVAL OF THE LOERA CATHETER. LEFT MESSAGE TO RETURN CALL.
--- NOTE | 2018-10-18 09:05 | NUR ---
DR. TIPTON RETURNS CALL. NOTIFIED OF LOERA REMOVAL AND REFUSAL OF CONTINUOUS MEDICATIONS AND FLUIDS.
--- NOTE | 2018-10-18 09:10 | NUR ---
DR. TIPTON UPDATED AT BEDSIDE. DR TIPTON SPEAKS WITH PT REGARDING HER TREATMENT PLAN AND CONSEQUENCES OF REFUSAL OF TREATMENT. PT ADVISES THAT SHE IS AWARE OF THE CONSEQUENCES AND WILL MAINTAIN HER FLUID STATUS WITH PO INTAKE. DR. TIPTON UPDATES ORDERS. WILL FOLLOW UP ON ORDERS.
--- NOTE | 2018-10-18 09:23 | NUR ---
NOTIFIED RT, PER DR. TIPTON, TO PROVIDE RESPIRATORY TREATMENTS Q4H FOR SHORTNESS OF BREATH.
[2018-10-18] MEDS ORDERED: PROBIOTIC SCREEN 1 EA MISC MC PRN (09:35)
--- NOTE | 2018-10-18 09:35 | NUR ---
PT CONTINUALLY MOVING POSITIONS IN BED, MOANING AND GROANING. PT APPEARS ANXIOUS AND RESTLESS. DR. TIPTON NOTIFIED AND ORDERS LORAZEPAM 1MG IV PUSH ONCE.
[2018-10-18] MEDS: LORazepam 2 MG/ML VIAL IVP PRN ×2 (09:44→21:30)
--- NOTE | 2018-10-18 10:30 | NUR ---
0944 ADMINISTERED 1MG LORAZEPAM 1030 RE-CHECK PT. PT RESTING COMFORTABLY. NO ADVERSE REACTIONS NOTED.
--- NOTE | 2018-10-18 11:25 | NUR ---
PATIENT'S SON, EDWARD, AT BEDSIDE. REQUESTS TO TALK TO DR. TINOCO REGARDING HIS MOTHER'S CONDITION.
--- NOTE | 2018-10-18 12:16 | NUR ---
RECEIVED CALL FROM PATIENT'S SON, MELISSA BATISTA. UPDATED SON ON PATIENT'S STATUS AND RECENT EVENTS.
--- NOTE | 2018-10-18 14:10 | NUR ---
DR. TINOCO AT PATIENT'S BEDSIDE, EVALUATING PATIENT. DR. TINOCO UPDATED ON PATIENT'S RESTLESSNESS, REFUSAL OF CONTINUOUS IV FLUIDS AND MEDICATIONS, AND REMOVAL OF LOERA CATHETER. NOTIFIED DR. TINOCO OF REQUEST FOR CONTACT FROM PATIENT'S SON. PER MD, WILL CALL. DR. TINOCO PROVIDED UPDATED VERBAL ORDERS FOR STRAIGHT CATH PRN AND LORAZEPAM 1MG Q4H PRN FOR ANXIETY AND RESTLESSNESS.
[2018-10-18] MEDS ORDERED: LORazepam 2 MG/ML VIAL IVP PRN (14:25)
--- NOTE | 2018-10-18 14:55 | NUR ---
PATIENT CURRENTLY RESTING. FRIEND OF PATIENT, VIRGINIA ESTEBAN, AT PATIENT'S BEDSIDE, LEFT CONTACT INFORMATION SO THAT PT CAN CONTACT HIM WHEN SHE IS MORE ALERT.
--- NOTE | 2018-10-18 15:19 | NUR ---
10/18/18 RD INITIAL ASSESSMENT COMPLETED PLEASE REFER TO NUTRITION ASSESSMENT UNDER CARE ACTIVITY FOR ESTIMATED NUTRITIONAL NEEDS. 1. CONTINUE CARDIAC MECH SOFT DIET TOLERATED 2. CONTINUE ENSURE BID 3. ENCOURAGE PO INTAKE 4. RD TO FOLLOW-UP 2-3 DAYS, HIGH RISK ABBI TAN, RD
--- NOTE | 2018-10-18 16:31 | NUR ---
PT ASLEEP AT THIS TIME NOT IN ANY DISTRESS. WILL CONTINUE TO MONITOR.
--- NOTE | 2018-10-18 16:50 | NUR ---
FRIENDS VISITING AT PATIENT'S BEDSIDE.
--- NOTE | 2018-10-18 17:22 | NUR ---
PT STILL REFUSED LOERA.WILL DO BLADDER SCAN
--- NOTE | 2018-10-18 18:15 | NUR ---
BLADDER SCAN RESULT: 167ML
--- NOTE | 2018-10-18 18:37 | NUR ---
PT'S SISTER, JULIANNE, CALLED TO CHECK ON PT.
[2018-10-18] MEDS: HYDRAGUARD CREAM TP PRN (18:53)
--- NOTE | 2018-10-18 19:01 | NUR ---
REPORT GIVEN TO FREELANCE PATTERNMAKER NURSE (JUAN) FOR CONTINUITY OF CARE. PT IS RESTING COMFORTABLY, VITAL SIGNS STABLE.
--- NOTE | 2018-10-18 19:30 | NUR ---
RECEIVED BEDSIDE REPORT FROM DAY SHIFT RN. AFEBRILE. PT IS AWAKE, AAOX3, ABLE TO MAKE NEEDS KNOWN AND FOLLOWS COMMANDS. DENIES PAIN AT THIS TIME. PACED RHYTHM ON MONITOR. PT IS ON O2 AT 2 LPM/NC. BREATHING EVEN AND UNLABORED. LUNGS SOUND CLEAR BILATERALLY. ABDOMEN SOFT, NONTENDER, NONDISTENDED WITH ACTIVE BOWEL SOUNDS. PT HAS PERIPHERAL IV G20 TO RIGHT HAND ASYMPTOMATIC, PATENT, INTACT, AND SALINE LOCKED. PT IS INCONTINENT. PULSES PALPABLE TO ALL EXTREMITIES. SKIN IS INTACT, DRY AND WARM TO TOUCH. REPOSITIONED FOR COMFORT. NO SIGNS OF DISTRESS NOTED AT THIS TIME. HOB 45 DEGREES, BED IN LOWEST POSITION AND CALL LIGHT WITHIN REACH. WILL CONTINUE TO MONITOR.
--- NOTE | 2018-10-18 20:26 | NUR ---
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
--- NOTE | 2018-10-18 20:28 | NUR ---
PT SEEN AND EXAMINED BY DR. IDALIA Gonzalez. BP 104/52 HR 71 AT THIS TIME. OK TO GIVE COREG PER DR. FRIEDMAN. ADMINISTERED MEDICATIONS ORDERED. PT TOLERATED WELL.
--- NOTE | 2018-10-18 23:39 | NUR ---
NO CHANGE IN CONDITION AT THIS TIME. PT IS ASLEEP. ON O2 AT 2 LPM/NC. VSS. ALL SAFETY PRECAUTIONS IN PLACE. WILL CONTINUE TO MONITOR.
[2018-10-19] VITALS (12 sets, daily range): BP systolic 93–143; BP diastolic 50–78
--- NOTE | 2018-10-19 01:40 | NUR ---
BLADDER SCAN RESULT: 122 ML AT THIS TIME. WILL CONTINUE TO MONITOR.
--- NOTE | 2018-10-19 03:25 | NUR ---
PT FEELING DISCOMFORT BUT DOES NOT KNOW FROM WHICH PART OF BODY. DENIES PAIN. NO URINATION SINCE START OF SHIFT, AND STRAIGHT CATHETERIZED ORDERED. ABOUT 50 ML KAREN COLORED URINE WITH SEDIMENTS NOTED. TURNED AND REPOSITIONED FOR COMFORT. TOLERATED WELL. VSS. WILL CONTINUE TO MONITOR.
--- NOTE | 2018-10-19 05:23 | NUR ---
PT RESTLESS AND AGITATED. FOLLOWS SIMPLE COMMANDS. STILL ON O2 AT 2 LPM/NC. O2 SAT 96%, RR 18. VSS. REPOSITIONED FOR COMFORT. BED IN LOWEST POSITION, LOCKED. ALL SAFETY PRECAUTIONS IN PLACE. WILL CONTINUE TO MONITOR.
--- NOTE | 2018-10-19 06:45 | NUR ---
PT IS DROWSY BUT ORIENTED TO NAME, BIRTHDAY AND PLACE. DENIES PAIN. REPOSITIONED FOR COMFORT. TOLERATED WELL.
[2018-10-19] MEDS: ALBUTEROL 0.083% 2.5 MG/3 ML NEBU INH PRN (07:06)
--- NOTE | 2018-10-19 07:19 | NUR ---
REPORT GIVEN TO IMPLANT COORDINATOR RN FOR CONTINUITY OF CARE. PT IS STABLE AT THIS TIME.
--- NOTE | 2018-10-19 08:00 | NUR ---
PATIENT OPENS EYES TO NAME, ORIENTED TO SELF, OBEYS SIMPLE COMMANDS LIKE WHEN PROMPTED TO SQUEEZE RN'S HAND PATIENT IS ABLE TO DO IT. ON NASAL CANNULA 2L/MIN SO2 99%, CLEAR BREATH SOUNDS, PACE RHYTHM ON MONITOR, WITH IMPLANTABLE PACEMAKER NOTED LEFT UPPER CHEST, SOFT ABDOMEN, INCONTINENT WITH ABSORBABLE UNDER PADS , GAUGE 20 PERIPHERAL IV ON RIGHT HAND-SITE ASYMPTOMATIC, SKIN INTACT
[2018-10-19 08:16] LABS: EOSINOPHILS % (AUTO) 0.1 % (0.0-4.0); HEMATOCRIT 34.8 % (36-48); HEMOGLOBIN 11.5 g/dL (12.0-16.0); LYMPHOCYTES # (AUTO) 0.5 K/uL (2.5-16.5); MEAN CORPUSCULAR HEMOGLOBIN 29 pg (27-31); MEAN CORPUSCULAR HGB CONC 33 g/dL (33-37); MONOCYTES # (AUTO) 0.4 K/uL (0.8-1.0); MONOCYTES % (AUTO) 8.6 % (1.7-9.3); PLATELET COUNT (AUTO) 126 K/uL (140-450); RED BLOOD CELL COUNT(AUTO) 3.91 MIL/uL (4.20-5.40); RED CELL DISTRIBUTION WIDTH 20.7 % (11.6-13.7); WHITE BLOOD COUNT (AUTO) 4.9 K/uL (4.8-10.8)
[2018-10-19 08:33] LABS: ALBUMIN 2.8 g/dL (3.4-5.0); ANION GAP 15.5 (8-16); ASPARTATE AMINOTRANSFERASE 176 U/L (15-37); CARBON DIOXIDE 21.9 mmol/L (21-32); CHLORIDE 98 mmol/L (98-107); CREATININE 2.5 mg/dL (0.6-1.3); GLUCOSE 79 mg/dL (74-106); POTASSIUM 4.4 mmol/L (3.5-5.1); SODIUM SERUM 131 mmol/L (136-145); TOTAL BILIRUBIN 2.8 mg/dL (0.0-1.0); UREA NITROGEN, BLOOD 25 mg/dL (7-18)
[2018-10-19 08:40] LABS: MAGNESIUM 1.7 mg/dL (1.8-2.4); PHOSPHORUS 4.2 mg/dL (2.5-4.9)
[2018-10-19 08:42] LABS: LYMPHOCYTES % (AUTO) 11.1 % (20.5-51.1); NEUTROPHILS % (AUTO) 80.2 % (42.2-75.2)
[2018-10-19] MEDS: CARVEDILOL 6.25 MG TAB PO SCH ×2 (09:00→20:03)
--- NOTE | 2018-10-19 09:00 | NUR ---
BP 83/53 at this time. Will hold antihypertensive medications at this time and continue to monitor
[2018-10-19] MEDS: ACETAMINOPHEN 325 MG TAB PO PRN (09:10)
[2018-10-19] MEDS: FUROSEMIDE 40 MG TAB PO SCH ×2 (09:11→20:05)
[2018-10-19] MEDS: APIXABAN 2.5 MG TAB PO SCH ×2 (09:12→20:05)
[2018-10-19] MEDS: MEXILETINE 150MG CAP PO SCH ×2 (09:14→20:05)
--- NOTE | 2018-10-19 09:30 | NUR ---
PATIENT WAS GIVEN HER BREAKFAST, MAXIMUM ASSIST. HEAD OF BED UP 90 DEGREES AT THIS TIME. PATIENT ATE ONLY 25% OF HER MEAL AND REFUSED TO EAT MORE.
--- NOTE | 2018-10-19 10:00 | NUR ---
BP now 106/62
--- NOTE | 2018-10-19 14:43 | NUR ---
Patient's son Ali at bedside patient's yellow necklace (1pice) yellow earrings with stud (1 pair) given to Ali and belongings form signed. ICU CN Kelsey aware
--- NOTE | 2018-10-19 15:32 | NUR ---
Previously mentioned belongings is now in hospital safe as advised by feed house supervisor Jory WOODY
--- NOTE | 2018-10-19 15:40 | NUR ---
Patient's son Ali was given advance directive form by belt and link shop supervisor to fill out and be notarized
--- NOTE | 2018-10-19 19:30 | NUR ---
BSSR RECEIVED FROM SONIA WOODY. PT CONFUSED ABLE TO SWALLOW, TALK BUT UNAWARE OF HER SITUATION. BREATHING NORMALLY ON NC AT 2L. NO S/S OF ANY COUGH NOTED, PACED REGULAR HR ON THE MONITOR. ABDOMEN SOFT AND NON TENDER TO TOUCH, INCONTINENT WITH URINE, CONTINUE TO LASIX PO TABS FOR ELEVATED BNP. PT COMFORTABLE, WILL CONTINUE TO MONITOR CLOSELY. PERIPHERAL IV INTACT AND SL.
[2018-10-19] MEDS: LORazepam 2 MG/ML VIAL IVP PRN (20:06)
--- NOTE | 2018-10-19 20:40 | NUR ---
PT WAS AGITATED AT 2004, ATIVAN 1 MG IV GIVEN AT 2005 AND PT IS COMFORTABLE AND ASLEEP AT THIS TIME.
--- NOTE | 2018-10-19 21:30 | NUR ---
DR. ALBERT CAME BY TO SEE THE PT, NO NEW ORDER, CONTINUE TO MONITOR FOR URINE OUT PUT.
--- NOTE | 2018-10-19 23:07 | NUR ---
PT STABLE, NO S/S OF ANY ACUTE DISTRESS NOTED.
[2018-10-20] VITALS (8 sets, daily range): BP systolic 90–166; BP diastolic 63–79
--- NOTE | 2018-10-20 01:30 | NUR ---
PT ASLEEP, COMFORTABLE
--- NOTE | 2018-10-20 03:30 | NUR ---
PT COMFORTABLE, WILL CONTINUE TO MONITOR CLOSELY.
[2018-10-20] MEDS: LORazepam 2 MG/ML VIAL IVP PRN (05:34)
--- NOTE | 2018-10-20 06:48 | NUR ---
PT WAS INCONTINENT TIMES 5, CHUCKS WERE SOAKING WET EACH TIME.
--- NOTE | 2018-10-20 07:10 | NUR ---
BSSR GIVEN TO BONG SCOTT. PT ASLEEP, VSS. NO S/S OF ANY ACUTE DISTRESS AT THIS TIME.
[2018-10-20 08:20] LABS: ANION GAP 16.6 (8-16); CARBON DIOXIDE 19.8 mmol/L (21-32); CHLORIDE 99 mmol/L (98-107); CREATININE 2.8 mg/dL (0.6-1.3); GLUCOSE 79 mg/dL (74-106); POTASSIUM 4.4 mmol/L (3.5-5.1); SODIUM SERUM 131 mmol/L (136-145); UREA NITROGEN, BLOOD 30 mg/dL (7-18)
--- NOTE | 2018-10-20 08:28 | NUR ---
Report was taken from night nurse BONG Welch. The patient is sedated per security shift supervisor nurse, given 1 mg Ativan, appears comfortable with no visible signs of distress. Patients vital signs are within normal range. Bed is in lowest position with 3 side rails up, and call light within reach. Will continue to monitor.
[2018-10-20] MEDS: FUROSEMIDE 40 MG TAB PO SCH ×3 (09:00→20:28)
[2018-10-20] MEDS: CARVEDILOL 6.25 MG TAB PO SCH ×2 (09:00→20:27)
[2018-10-20] MEDS: APIXABAN 2.5 MG TAB PO SCH ×3 (09:00→20:29)
[2018-10-20] MEDS: MEXILETINE 150MG CAP PO SCH ×2 (09:00→20:32)
[2018-10-20] MEDS: DEXT 5% /NACL 0.9% 1,000 ML IV SCH (12:14)
--- NOTE | 2018-10-20 12:15 | NUR ---
DR. BARTLETT IN TO SEE PATIENT, UPDATED ON PATIENT'S CONDITION. WILL FOLLOW UP ON ANY ORDERS
--- NOTE | 2018-10-20 13:56 | NUR ---
PATIENT'S SON IS AT BEDSIDE, UPDATED ON PATIENT'S CONDITION.
--- NOTE | 2018-10-20 14:11 | NUR ---
PATIENT'S SON AT BEDSIDE.
[2018-10-20] MEDS: ALBUTEROL 0.083% 2.5 MG/3 ML NEBU INH PRN (18:56)
--- NOTE | 2018-10-20 19:05 | NUR ---
ENDORSED CONTINUITY OF CARE TO BUSSER RNGELY. RT AT BEDSIDE FOR BREATHING TREATMENT. VITALS STABLE AT THIS TIME
--- NOTE | 2018-10-20 19:20 | NUR ---
RECEIVED BEDSIDE REPORT FROM MORNING NURSE, PATIENT SPONTANEOUSLY OPENS HER EYES BUT UNABLE TO MAKE NEEDS KNOWN. BILATERAL LUNGS SOUND WHEEZING NOTED. O2 2L/M VIA NC. O2 SAT 100% NOTED. 100% PACED RHYTHM NOTED. PERIPHERAL LINE TO RIGHT FOREARM 20G WITH D5NS 40ML/HR. ACTIVE BOWEL SOUND FROM ALL 4QUADS. PATIENT INCONTINENT WITH NO LOERA. SCD ON PLACE. HOB ELEVATED 30DEGREE, BED IN LOW POSITION. CALL LIGHT WITHIN REACH. WILL CONTINUE TO MONITOR.
[2018-10-20] MEDS: ACETAMINOPHEN 325 MG TAB PO PRN (20:30)
--- NOTE | 2018-10-20 21:00 | NUR ---
ADMINISTERED SCHEDULED MEDICATIONS ORDERED. VSS BUT PATIENT IN RESTLESSNESS. ADMINISTERED PRN TYLENOL. WILL CONTINUE TO MONITOR.
--- NOTE | 2018-10-20 23:20 | NUR ---
DR. OH AT BEDSIDE TO CHECK THE PATIENT. NOTIFIED TO DR. OH THAT PATIENT IS RESTLESSNESS, RECEIVED PRN HALDOL IM 1MG ORDER.
[2018-10-20] MEDS: HALOPERIDOL IM 5 MG/ML VIAL IM PRN (23:47)
[2018-10-21] VITALS (10 sets, daily range): BP systolic 96–134; BP diastolic 36–72
--- NOTE | 2018-10-21 02:00 | NUR ---
PATIENT IN ASLEEP AT THIS TIME. NO ACUTE DISTRESS NOTED. VSS NOTED. WILL CONTINUE TO MONITOR.
[2018-10-21] MEDS: ACETAMINOPHEN 325 MG TAB PO PRN (02:42)
--- NOTE | 2018-10-21 05:40 | NUR ---
PROVIDED MORNING CARE, PATIENT TOLERATED WELL. PATIENT HAD 4 TIMES URINATION AND NO BOWEL MOVEMENT NOTED. VSS BUT PATIENT STILL RESTLESSNESS. WILL CONTINUE TO MONITOR.
[2018-10-21] MEDS: HALOPERIDOL IM 5 MG/ML VIAL IM PRN (06:05)
--- NOTE | 2018-10-21 07:15 | NUR ---
RECEIVED REPORT FROM CRIMPER OPERATOR NURSE AT BEDSIDE, PT IS LETHARGIC, UNABLE TO FOLLOW COMMANDS AND MAKE NEEDS KNOWN, VSS, FLACC 0, NO S/S OF DISTRESS, CLEAR LUNG SOUNDS YOEL, ON O2 AT 2L VIA NC, O2 SAT 100%, PACED RHYTHMS ON SEGMENTAL PAVING SUPERVISOR, SOFT ABDOMEN WITH HYPOACTIVE BOWEL SOUNDS, INCONTINENT WITH B&B'S, GENERALIZED WEAKNESS NOTED, SKIN IS INTACT, WARM AND DRY TO TOUCH, IV SITE TO RIGHT WRIST, 20GA, PATENT AND RUNNING N5 NS AT 40 ML/HR. HOB ELEVATED 30 DEGREES, POSITION CHANGED FOR COMFORT, SAFETY MEASURES IN PLACE, CALL LIGHT WITHIN REACH, WILL CONTINUE TO MONITOR.
--- NOTE | 2018-10-21 08:15 | NUR ---
PT STILL LETHARGIC, CAN NOT HAVE BREAKFAST AND MEDICATION AT THIS TIME, WILL CONTINUE TO MONITOR.
--- NOTE | 2018-10-21 09:30 | NUR ---
SCHEDULED MEDICATION GIVEN WITH ORANGE JUICE, PT TOLERATED WELL.
[2018-10-21] MEDS: ALBUTEROL 0.083% 2.5 MG/3 ML NEBU INH PRN (09:45)
[2018-10-21] MEDS: CARVEDILOL 6.25 MG TAB PO SCH ×2 (09:56→21:17)
[2018-10-21] MEDS: FUROSEMIDE 40 MG TAB PO SCH ×2 (09:57→21:17)
[2018-10-21] MEDS: MEXILETINE 150MG CAP PO SCH ×2 (09:57→21:17)
[2018-10-21] MEDS: APIXABAN 2.5 MG TAB PO SCH ×2 (10:00→21:32)
--- NOTE | 2018-10-21 10:00 | NUR ---
PT IS AWAKE, CONFUSED, SCREAMING SOMETIMES WITHOUT OPEN EYES, VSS, NO S/S OF DISTRESS, WILL CONTINUE TO MONITOR.
[2018-10-21] MEDS: DEXT 5% /NACL 0.9% 1,000 ML IV SCH (11:47)
--- NOTE | 2018-10-21 12:00 | NUR ---
NO CHANGE OF CONDITION AT THIS TIME, VSS, FLACC 3, POSITION CHANGED FOR OFF LOAD PRESSURE.
--- NOTE | 2018-10-21 12:15 | NUR ---
Received patient from BONG Eaton, Patient opens eyes to voice, obeys simple commands like when prompted to squeeze RN's hand, paced rhythm in the monitor 70 bpm, on nasal cannula O2 2l/min SO2 100%, skin intact. Head 30 degrees up. Will continue to monitor.
--- NOTE | 2018-10-21 15:52 | NUR ---
10/21/18 RD FOLLOW UP COMPLETED PLEASE REFER TO NUTRITION ASSESSMENT UNDER CARE ACTIVITY FOR ESTIMATED NUTRITIONAL NEEDS. 1. CONTINUE CARDIAC MECH SOFT DIET TOLERATED 2. CONTINUE ENSURE BID 3. ENCOURAGE PO INTAKE 4. IF PO INTAKE CONTINUES <50% CONSIDER TPN 5. RD TO FOLLOW-UP 2-3 DAYS, HIGH RISK ABBI TAN RD
--- NOTE | 2018-10-21 16:08 | NUR ---
Architecture Internship Note: I spoke with pillowcase turner Sherly from [facility] ext [phone], fax , informed her we are anticipating for patient to need snf placement for physical therapy. I faxed physical therapy notes to [facility]. I called and spoke with patient's son Divya Agustin , he stated patient lives at home with him and he is patient's caregiver. He told me a hospital bed is supposed to be deliver to patient's home, he is not sure when. Patient uses a fww to ambulate at home. She does not have an oxygen tank at home. He stated if patient does not need snf placement for continuity of care patient can return home upon discharge. He reported he is in agreement with short term snf placement. He told me patient has been at a snf located by [facility] in the past, he does not recall name of snf.
[2018-10-21] MEDS: HYDRAGUARD CREAM TP PRN (17:06)
--- NOTE | 2018-10-21 18:30 | NUR ---
Patient transferred to telemetry via ICU bed and telemetry box/monitor. Report given to Breanna WOODY, isaak (1mobile phone,1 medical associate). Patient's sons Divya and Naeem at bedside. Patient opens eyes to voice, obeys simple commands, SO2 98% on nasal cannula O2 2l/min., no complaints of pain. IV line at right hand patent.
--- NOTE | 2018-10-21 18:45 | NUR ---
PT ARRIVED FROM ICU, PLACED ON MONITOR, TRANSFERRED BED FULL ASSIST 3 NURSES. PT WITH EYES CLOSED, FOLLOWS SOME COMMANDS, DOES NOT ANSWER QUESTIONS, POSITIONED FOR COMFORT, VITALS TAKEN, STABLE, RESP EVEN UNLABORED, ON 2L NC. CALL BOJORQUEZ WITHIN REACH, SIDE RAILS UP, BED LOCKED IN LOW POSITION, WILL CONTINUE TO MONITOR.
--- NOTE | 2018-10-21 19:30 | NUR ---
ASSUMED CARE OF PATIENT, AWAKE, CONFUSED. SON AT BEDSIDE. HOB ELEVATED AT ALL TIMES. CALL LIGHT WITHIN REACH.
--- NOTE | 2018-10-21 19:40 | NUR ---
REPORT GIVEN TO MEDICAL RECORDS SPECIALIST NURSE, PT REPOSITIONED FOR COMFORT, PT'S SON AT BEDSIDE.
--- NOTE | 2018-10-21 20:00 | NUR ---
VTIAL SIGNS STABLE. AFEBRILE. REPOSITIONED WITH CULTURE MANAGER. PLAN OF CARE DISCUSSED WITH SON, VERBALIZED UNDERSTANDING WELL. CALL LIGHT WITHIN REACH. CARE BOARD UPDATED.
--- NOTE | 2018-10-21 21:00 | NUR ---
DUE MEDS GIVEN. REFUSED TO EAT SOUP. ONLY TOOK OJ AND CUP OF APPLE SAUCE. REPOSITIONED. CALL LIGHT WITHIN REACH.
--- NOTE | 2018-10-21 23:03 | NUR ---
NEW IV ACCESS INSERTED ON LEFT HAND.
--- NOTE | 2018-10-21 23:43 | NUR ---
REPOSITIONED AND PERICARE BY CNC LATHE MACHINE OPERATOR, RESTLESS AND KEEP MOVING AROUND IN BED. VITAL SIGNS STABLE. AFEBRILE. CALL LIGHT WITHIN REACH.
[2018-10-22 04:25] VITALS: BP 116/71
--- NOTE | 2018-10-22 06:30 | NUR ---
REPOSITIONED AND PERICARE BY STUFFING MACHINE OPERATOR. NO DISTRESS. CALL LIGHT WITHIN REACH.
--- NOTE | 2018-10-22 07:25 | NUR ---
ENDORSED CARE AT BEDSIDE WITH AM CARE NURSE, PATIENT IN STABLE CONDITION.
--- NOTE | 2018-10-22 07:26 | NUR ---
RECEIVED BEDSIDE REPORT FROM BONG ALVAREZ. PT STABLE, SLEEPING, BUT EASILY AROUSABLE. NO SIGNS OF DISTRESS NOTED. ON 2L O2 VIA NC. NO REDNESS, SWELLING, OR INFLAMMATION NOTED ON IV SITE. BED IN LOWEST POSITION, BED ALARM ON. CALL BOJORQUEZ WITHIN REACH. SAFETY MEASURES IN PLACE. PLAN OF CARE REVIEWED.
[2018-10-22 08:00] VITALS: BP 109/64
[2018-10-22] MEDS: CARVEDILOL 6.25 MG TAB PO SCH ×2 (09:00→20:56)
[2018-10-22] MEDS: FUROSEMIDE 40 MG TAB PO SCH ×2 (09:00→20:56)
--- NOTE | 2018-10-22 09:30 | NUR ---
PT REPOSITIONED, LINENS AND GOWN CHANGED. PT STABLE.
[2018-10-22] MEDS: APIXABAN 2.5 MG TAB PO SCH ×2 (10:44→20:15)
--- NOTE | 2018-10-22 10:45 | NUR ---
ADMINISTERED SCHEDULED MEDICATIONS, PT TOLERATED WELL. HELD SCHEDULED FUROSEMIDE AND CARVEDILOL FOR BP 109/67. NO NEEDS AT THIS TIME. BED ALARM ON. Addendum: 10/22/18 at 1443 by Kari Ritchie RN PER RACHID ELLER TO GIVE ELIQUIS. ADMINISTERED SCHEDULED ELIQUIS PER ORDER.
[2018-10-22] MEDS: MEXILETINE 150MG CAP PO SCH ×2 (10:46→20:16)
[2018-10-22 10:50] LABS: BASOPHILS % (AUTO) 0.2 % (0.0-2.0); EOSINOPHILS % (AUTO) 0.2 % (0.0-4.0); LYMPHOCYTES # (AUTO) 0.8 K/uL (2.5-16.5); LYMPHOCYTES % (AUTO) 10.6 % (20.5-51.1); MEAN CORPUSCULAR HEMOGLOBIN 29 pg (27-31); MEAN CORPUSCULAR HGB CONC 33 g/dL (33-37); MEAN CORPUSCULAR VOLUME 89.5 fL (80-94); MONOCYTES # (AUTO) 0.8 K/uL (0.8-1.0); MONOCYTES % (AUTO) 10.5 % (1.7-9.3); NEUTROPHILS # (AUTO) 5.6 K/uL (1.8-7.7); NEUTROPHILS % (AUTO) 78.5 % (42.2-75.2); PLATELET COUNT (AUTO) 115 K/uL (140-450); RED BLOOD CELL COUNT(AUTO) 4.46 MIL/uL (4.20-5.40); RED CELL DISTRIBUTION WIDTH 21.8 % (11.6-13.7); WHITE BLOOD COUNT (AUTO) 7.2 K/uL (4.8-10.8)
[2018-10-22 10:55] LABS: ANION GAP 15.4 (8-16); CARBON DIOXIDE 21.1 mmol/L (21-32); CHLORIDE 102 mmol/L (98-107); CREATININE 3.1 mg/dL (0.6-1.3); GLUCOSE 103 mg/dL (74-106); POTASSIUM 4.5 mmol/L (3.5-5.1); SODIUM SERUM 134 mmol/L (136-145); UREA NITROGEN, BLOOD 35 mg/dL (7-18)
--- NOTE | 2018-10-22 11:04 | NUR ---
Mechanical Energy Engineer Note: I called patient's son Divya Agustin to ask him if he has a hospice company preference, no answer, left message to please call me back.
[2018-10-22] MEDS: DEXT 5% /NACL 0.9% 1,000 ML IV SCH ×2 (11:49→16:28)
[2018-10-22 12:00] VITALS: BP 111/70
--- NOTE | 2018-10-22 12:30 | NUR ---
PT LETHARGIC, UNABLE TO EAT LUNCH. WILL CONTINUE TO MONITOR.
--- NOTE | 2018-10-22 14:30 | NUR ---
PT STABLE, SLEEPING, BUT EASILY AROUSABLE. VISIBLE CHEST RISE AND FALL NOTED. ON 2L O2 VIA NC.
--- NOTE | 2018-10-22 15:10 | NUR ---
SPOKE WITH PT'S DAUGHTER ADILENE REGARDING PLAN OF CARE.
[2018-10-22 16:00] VITALS: BP 101/61
--- NOTE | 2018-10-22 16:17 | NUR ---
Green Lumber Grader Note: I met with patient's son Divya Agustin . He stated he is not interested in hospice services or hospice evaluation because it's not in patient's best interest. He reported he had a heart attack recently and would prefer for patient to be transfer to a long term facility upon discharge (he had previously told me he was in agreement with either patient returning home or being transfer to snf). He told me he would like to be involved with snf selection. I explained to him if MD recommends snf placement we will contact patient's insurance plan and inquire which snfs are contracted with insurance. He verbalized understanding. I informed patient's nurse Maricruz Way patient's son Divya would like patient to be transfer to snf and does not want a hospice evaluation. Addendum: 10/23/18 at 1511 by Sophia Osborne SS Late entry for 10/22/18: Correction patient's son is Nikole Stokes, not Divya Agustin. Per Nikole Stokes, patient does not have an existing Advance Directive.
--- NOTE | 2018-10-22 16:20 | NUR ---
RECEIVED CALL FROM SUPERVISOR BLOOMING MILL HAYDEN REGARDING PT'S SON EDWARD DOES NOT WANT PT TO BE PUT IN HOSPICE. SON EDWARD WANTS SNF PLACEMENT INSTEAD. MADE DR BARTLETT AWARE.
--- NOTE | 2018-10-22 16:30 | NUR ---
CHANGED IV BAG. SON AT THE BEDSIDE.
--- NOTE | 2018-10-22 16:46 | NUR ---
Supervisor Post Wave Note: I spoke with case filler Sherly from [facility] ext [phone], fax , informed her patient's son Divya Agustin is not interested in hospice evaluation. Per Sherly, if patient needs snf placement, the following snfs can be contacted [facility] , [facility] , [facility] , [facility] , and [facility] . I faxed 's snf order to [facility].
--- NOTE | 2018-10-22 17:01 | NUR ---
CALLED RT FOR BREATHING TREATMENT PER PT'S SON REQUEST. PT STABLE, SLEEPING, BUT EASILY AROUSABLE.
[2018-10-22] MEDS: ALBUTEROL 0.083% 2.5 MG/3 ML NEBU INH PRN (17:22)
--- NOTE | 2018-10-22 17:56 | NUR ---
SIGN POSTED BY THE PT'S HEAD OF THE BED REGARDING THE BREAKFAST, LUNCH, AND DINNER MENU THAT THE PT PREFERS PER PT'S SON. WILL ENDORSE TO POST OFFICE MARKUP CLERK NURSE.
--- NOTE | 2018-10-22 19:10 | NUR ---
ENDORSED PT TO RN ELKIN FOR CONTINUITY OF CARE. PT STABLE.
--- NOTE | 2018-10-22 19:30 | NUR ---
RECEIVED BEDSIDE REPORT FROM DAY SHIFT NURSE. PATIENT SLEEPING BUT EASILY AROUSABLE. RESPIRATION EVEN UNLABORED ON 3L O2 VIA NC. NO DISTRESS NOTED. SKIN IS WARM AND DRY. IV PATENT AND INTACT. FAMILY AT BEDSIDE. PLAN OF CARE WAS DISCUSSED. ALL SAFETY MEASURES IN PLACE. BED IN LOW POSITION. BED ALARM ON. CALL LIGHT WITHIN REACH. WILL CONTINUE TO MONITOR
[2018-10-22 20:00] VITALS: BP 97/65
--- NOTE | 2018-10-22 20:00 | NUR ---
INITIAL ASSESSMENT DONE. VITALS WERE TAKEN. PATIENT SLEEPING BUT EASILY AROUSABLE. NO DISTRESS NOTED. WILL CONTINUE TO MONITOR
--- NOTE | 2018-10-22 21:00 | NUR ---
ALL SCHEDULED MEDS WERE GIVEN PER ORDER. LASIX AND COREG NOT GIVEN DUE TO PATIENT BLOOD PRESSURE. WILL CONTINUE TO MONITOR
--- NOTE | 2018-10-22 21:00 | NUR ---
PLEASE HAVE SENIOR ACCOUNTANT ANALYST OR CASE MANAGEMENT CONTACT MAGDALENO BATISTA, PATIENT GRANDDAUGHTER. PHONE NUMBER [phone].
--- NOTE | 2018-10-22 21:00 | NUR ---
SPOKE TO LYNNE TORRES. PATIENT SON AND THE PRIMARY CONTACT. TOLD ME TO ADD LYNNE DOLAN GRANDDAUGHTER ONE OF THE PRIMARY CONTACT AND DECISION MAKER OF JAYY LAUREN. ALSO HE INFORMED ME TO DISREGARD EDWARD MEIER FOR MAKING DECISION FOR THE PATIENT. WILL ENDORSED TO DAY SHIFT NURSE.
--- NOTE | 2018-10-22 21:30 | NUR ---
PATIENT REFUSED DINNER. OFFERED SNACK STILL REFUSED. GRANDDAUGHTER AT BEDSIDE. WILL CONTINUE TO MONITOR
--- NOTE | 2018-10-22 23:00 | NUR ---
PATIENT SLEEPING RESPIRATION EVEN UNLABORED ON 3L O2 NC. NO DISTRESS NOTED. WILL CONTINUE TO MONITOR
[2018-10-23] VITALS: BP 93/55
--- NOTE | 2018-10-23 | NUR ---
VITALS WERE TAKEN. PATIENT CONDITION STABLE. NO DISTRESS NOTED WILL CONTINUE TO MONITOR.
--- NOTE | 2018-10-23 02:00 | NUR ---
OFFERED PATIENT WATER. PATIENT STATED "I DON'T WANT IT". WILL CONTINUE TO MONITOR
[2018-10-23 04:00] VITALS: BP 97/64
--- NOTE | 2018-10-23 04:00 | NUR ---
VITALS WERE TAKEN. PATIENT CONDITION STABLE. NO DISTRESS NOTED. WILL CONTINUE TO MONITOR
[2018-10-23 06:47] LABS: ANION GAP 14.4 (8-16); CARBON DIOXIDE 22.8 mmol/L (21-32); CHLORIDE 100 mmol/L (98-107); GLUCOSE 104 mg/dL (74-106); POTASSIUM 4.2 mmol/L (3.5-5.1); SODIUM SERUM 133 mmol/L (136-145); UREA NITROGEN, BLOOD 34 mg/dL (7-18)
--- NOTE | 2018-10-23 07:19 | NUR ---
ENDORSED PATIENT TO DAY SHIFT NURSE. PATIENT CONDITION STABLE.
--- NOTE | 2018-10-23 07:23 | NUR ---
RECEIVED BEDSIDE REPORT FROM MANIFEST CLERK RN FOR CONTINUITY OF CARE. AOX1. OPENS EYES SPONTANEOUSLY. RESPONDS TO/ANSWERS YES/NO QUESTIONS ONLY. DENIES PAIN. NO S/S ACUTE DISTRESS. RESPIRATIONS EVEN AND UNLABORED. SKIN INTACT. PT IS AMBULATORY WITHOUT ASSIST. IV SITE PATENT AND ASYMPTOMATIC, INFUSING IVF PER MD ORDERS. ALL SAFETY PRECAUTIONS IN PLACE, WILL CONTINUE TO MONITOR.
[2018-10-23 08:00] VITALS: BP 109/66
[2018-10-23] MEDS: FUROSEMIDE 40 MG TAB PO SCH ×2 (08:18→20:58)
[2018-10-23] MEDS: CARVEDILOL 6.25 MG TAB PO SCH ×2 (08:18→20:57)
--- NOTE | 2018-10-23 08:18 | NUR ---
SCHEDULED MEDICATIONS ADMINISTERED. PT IS RESTING IN BED WITH EYES CLOTHES. AOX1 BUT ABLE TO OBEY SIMPLE COMMANDS SUCH "OPEN YOUR MOUTH" FOR MEDICATION ADMINISTRATION. ADMINISTERED PILLS CRUSHED IN APPLE SAUCE. NO PROBLEMS SWALLOWING. Addendum: 10/23/18 at 0843 by Adriana Torre Meng, RN EYES CLOSED*
[2018-10-23] MEDS: APIXABAN 2.5 MG TAB PO SCH ×2 (08:19→21:06)
[2018-10-23] MEDS: MEXILETINE 150MG CAP PO SCH ×2 (08:20→20:59)
--- NOTE | 2018-10-23 10:00 | NUR ---
MAKENZIE HEAD [phone] STATES SON EDWARD SHOULD BE MAKING DECISIONS FOR PT. STATES GRANDDAUGHTER MAGDALENO [phone] SHOULD NOT BE INVOLVED IN FAMILY MEETING WITH DOCTOR. SON MELISSA [phone] STATES SON EDWARD SHOULD NOT BE MAKING DECISIONS FOR PT- THAT IS WHY EDWARD'S NAME IS NOT ON FACESHEET. KIERRA TORRES IS UNABLE TO COME TO HOSPITAL IN THE NEXT 1.[address] ARREGUIN. GRANDDAUGHTER MAGDALENO [phone] IS CALLING ASKING ABOUT PATIENT'S CONDITION. INFORMED SS HAYDEN. HAYDEN WILL HELP ARRANGE FAMILY MEETING W/ DOCTOR.
--- NOTE | 2018-10-23 10:36 | NUR ---
BLE ARE COOL TO TOUCH- PT HAS BEEN KICKING OFF BLANKETS. COVERED PT WITH TWO WARM BLANKETS. PEDAL PULSES 2+ BILATERALLY. WILL CONTINUE TO MONITOR.
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
--- NOTE | 2018-10-23 11:33 | NUR ---
PATIENT SLEEPING IN BED, RESPIRATIONS EVEN AND UNLABORED. ADEQUATE CHEST RISE AND FALL. PT IS POSITIONED COMFORTABLY. COVERED WELL WITH BLANKETS. ALL SAFETY PRECAUTIONS IN PLACE, WILL CONTINUE TO MONITOR.
[2018-10-23 12:00] VITALS: BP 91/52
--- NOTE | 2018-10-23 12:01 | NUR ---
CHILDCARE ATTENDANT FEEDING PATIENT, GRANDDAUGHTER AT BEDSIDE. PT IS TAKING SMALL BITES SLOWLY.
--- NOTE | 2018-10-23 12:19 | NUR ---
BLE ARE WARMER COMPARED TO EARLIER. TEMP VIA TEMPORAL THERMOMETER IS 97.7 F. PT SLEEPING IN BED, RESPIRATIONS EVEN AND UNLABORED. ALL SAFETY PRECAUTIONS IN PLACE, WILL CONTINUE TO MONITOR. Addendum: 10/23/18 at 1225 by Adriana Torre Meng, RN MAP IS AT 65 PER MD ORDERS.
--- NOTE | 2018-10-23 13:19 | NUR ---
PT RESTING IN BED, WITH GRANDDAUGHTER AT BEDSIDE. ALL SAFETY PRECAUTIONS IN PLACE, WILL CONTINUE TO MONITOR.
--- NOTE | 2018-10-23 13:34 | NUR ---
PT IS LESS LETHARGIC NOW. CONVERSING-MINIMALLY- WITH GRANDDAUGHTER AT BEDSIDE.
--- NOTE | 2018-10-23 15:06 | NUR ---
KIERRA MELISSA AT BEDSIDE. PT IS CONVERSING WITH SON. PT SAID TO SON "I WANT TO TALK TO YOU IN PRIVATE". WILL PROVIDE SPACE FOR FAMILY TO INTERACT. Addendum: 10/23/18 at 1506 by Adriana Torre Meng, RN ALL SAFETY PRECAUTIONS IN PLACE, WILL CONTINUE TO MONITOR CLOSELY.
--- NOTE | 2018-10-23 15:26 | NUR ---
SON MELISSA AND PATIENT'S NIECE AT BEDSIDE REQUESTING TO HAVE MEETING SET UP WITH NOTIFIED LAINE THAT SON EDWARD HAS NOT BEEN IN TO SEE PATIENT YET. CALLED MIKE BLAKE AND HAD HER SPEAK WITH KIERRA TORRES ON THE PHONE.
[2018-10-23 16:00] VITALS: BP 125/65
--- NOTE | 2018-10-23 16:02 | NUR ---
VITALS STABLE. FAMILY MEMBERS REMAIN AT BEDSIDE. ALL SAFETY PRECAUTIONS IN PLACE, WILL CONTINUE TO MONITOR.
--- NOTE | 2018-10-23 16:13 | NUR ---
Apprentice Pattern Maker Note: I received a call from patient's granddaughter Molly Shepherd this morning , she stated her uncle Nikole Stokes is mentally ill and disabled and cannot make proper medical decisions on patient's behalf. She told me she is open to a hospice evaluation and is unsure if her father Naeem Shepherd would be agreeable with a hospice evaluation. She reported she lives in [facility] and Naeem in [facility]. I suggested to Molly a family conference with MD, she agreed. Per , he is available to meet with patient's family for conference tomorrow at 11am. Per Molly, Naeem, and Nikole, they will all be here tomorrow for family conference with MD at 10:45am. Per Nikole Stokes, patient's Advance Directive is not signed by patient, I explained to him Advance Directive is not valid since it is not signed by patient, he verbalized understanding.
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
[2018-10-23] MEDS: DEXT 5% /NACL 0.9% 1,000 ML IV SCH (18:44)
--- NOTE | 2018-10-23 19:25 | NUR ---
ENDORSED POC TO STORE GIFT WRAP ASSOCIATE RN. PT IN STABLE CONDITION.
--- NOTE | 2018-10-23 19:26 | NUR ---
RECEIVED BEDSIDE REPORT FROM VICTORIANO WOODY. PT RESTING IN BED, AWAKE. PT CONFUSED. ON NC 2 L. NO SIGNS OF RESP DISTRESS OR DISCOMFORT NOTED AT THIS TIME. PT ON TELE MONITOR. HAS A PACEMAKER. WITH IV L HAND #24G RUNNING D5NS @40ML/HR. DISCUSSED PLAN OF CARE. CLEAN DRY INTACT. SKIN INTACT. PITTING EDEMA+1 ON LOWER EXTREMITIES. BED IN LOWEST POSITION, BED BREAKS ON, BOTH SIDE RAILS UP. BEDSIDE TABLE AND CALL LIGHT ARE WITHIN REACH. WILL CONTINUE TO MONITOR.
[2018-10-23 20:00] VITALS: BP 103/61
--- NOTE | 2018-10-23 20:00 | NUR ---
PT SLEEPING COMFORTABLY IN BED. EASILY AROUSABLE. NO COMPLAINTS AT THIS TIME. NO SIGNS OF RESP DISTRESS. BED IN LOWEST POSITION. CALL LIGHT WITHIN REACH. WILL CONTINUE TO MONITOR.
--- NOTE | 2018-10-23 20:57 | NUR ---
PT BP REPEATED BEFORE GIVING COREG. BP AT THIS TIME 97/68. MEDICATION HOLD AT THIS TIME. WILL CONTINUE TO MONITOR.
--- NOTE | 2018-10-23 22:00 | NUR ---
PT SLEEPING COMFORTABLY IN BED. EASILY AROUSABLE. NO COMPLAINTS AT THIS TIME. NO SIGNS OF RESP DISTRESS NOTED. NO PAIN NOTED. BED IN LOWEST POSITION. CALL LIGHT WITHIN REACH. WILL CONTINUE TO MONITOR.
--- NOTE | 2018-10-23 23:20 | NUR ---
HERSON, SISTER FROM [place] CALLED AND JUST WANT TO SEE HOW PT IS DOING. SHE SAID TO TRY GIVING PT ICE CREAM WHICH SHE LIKES .
[2018-10-24] VITALS: BP 111/66
--- NOTE | 2018-10-24 01:10 | NUR ---
PT LAYING IN BED. APPEARS TO BE UNCOMFORTABLE. PT REPOSITIONED IN BED. TURNED TO LEFT LATERAL SIDE. BED IN LOW POSITION. CALL LIGHT WITHIN REACH.
--- NOTE | 2018-10-24 03:10 | NUR ---
PT SLEEPING COMFORTABLY IN BED. NO SIGNS OF RESP DISTRESS. PT EASILY AROUSABLE. BED IN LOW POSITION, WILL CONTINUE TO MONITOR.
[2018-10-24 04:00] VITALS: BP 118/76
--- NOTE | 2018-10-24 05:00 | NUR ---
PT IN BED SLEEPING. NO SIGNS OF RESP DISTRESS. EASILY AROUSABLE. NO PAIN NOTED. BED IN LOW POSITION. CALL LIGHT WITHIN REACH. WILL CONTINUE TO MONITOR.
--- NOTE | 2018-10-24 06:29 | NUR ---
PT REMAINS FREE OF DISTRESS. NO SIGNS OF RESP DISTRESS OR DISCOMFORT. BED IN LOW POSITION. CALL LIGHT WITHIN REACH. WILL CONTINUE TO MONITOR.
--- NOTE | 2018-10-24 07:10 | NUR ---
PIEDAD,DAUGHTER FROM [place] JUST CALLED AND JUST ASKED HOW MOM IS DOING. SHE SAID SHE WILL TRY TO CALL LUNCH TIME AGAIN. WILL ENDORSE TO AM NURSE.
--- NOTE | 2018-10-24 07:26 | NUR ---
ENDORSED PT TO DAYSHIFT RN. PT IN STABLE CONDITION. BED IN LOW POSITION. CALL LIGHT WITHIN REACH.
--- NOTE | 2018-10-24 07:50 | NUR ---
PATIENT WAS DROWSY, ABLE TO FOLLOW VERBAL COMMAND. RESPIRATION EVEN, UNLABOR ON 2L NC. SKIN DRY AND WARM. IV PATENT AND INTACT. FLACC 0. PLAN OF CARE WAS DISCUSSED WITH PATIENT. PATIENT UNABLE TO COMPREHEND. BED AT LOW POSITION, SIDE RAILS UP. CALL LIGHT WITHIN REACH
[2018-10-24 08:00] VITALS: BP 107/64
[2018-10-24] MEDS ORDERED: CLINICAL MONITORING MC PRN (09:05)
--- NOTE | 2018-10-24 09:30 | NUR ---
PATIENT WAS REPOSITIONED AND PERINEAL CARE WAS GIVEN. PATIENT TOLERATED WELL
[2018-10-24] MEDS: CARVEDILOL 6.25 MG TAB PO SCH ×2 (09:34→20:29)
[2018-10-24] MEDS: MEXILETINE 150MG CAP PO SCH ×2 (09:35→20:30)
[2018-10-24] MEDS: FUROSEMIDE 40 MG TAB PO SCH ×2 (09:35→20:29)
[2018-10-24] MEDS: APIXABAN 2.5 MG TAB PO SCH ×2 (09:36→20:31)
--- NOTE | 2018-10-24 10:00 | NUR ---
THERE IS REDNESS FOUND UNDERNEATH BOTH BREAST. HYDRAGUARD WAS APPLIED PER ORDER
--- NOTE | 2018-10-24 10:12 | NUR ---
Report Programmer Note: Per , he requested to meet with patient's son Naeem Shepherd and patient's granddaughter Molly Shepherd since they are currently at bedside and are available for meeting. and I met with them. provided them with detailed information on patient's poor prognosis. He recommended hospice services for patient. They both stated no one can take care of patient and prefer for patient to be transfer to a snf with hospice services. They told me they do not have a hospice company preference and are in agreement with us calling any hospice company. I faxed a referral to [facility], fax number , phone number . Nikole Stokes arrived to hospital after family conference had ended. He reported he is aware patient has poor prognosis and would like to speak with hospice staff regarding palliative care. I relayed this message to Stephie from [facility] . Per Stephie, she will schedule two meetings one with Naeem and Molly and other one with Nikole Stokes.
--- NOTE | 2018-10-24 10:49 | NUR ---
PATIENT WAS TRANSFERRED TO CT SCAN IN WHEEL CHAIR. PATIENT IS STABLE AT THIS TIME Addendum: 10/24/18 at 1050 by Judie Okeefe RN WRONG PATIENT
[2018-10-24 12:00] VITALS: BP 98/63
--- NOTE | 2018-10-24 12:00 | NUR ---
PATIENT WAS LETHARGIC, EYES OPEN SPONTANEOUSLY, ABLE TO FOLLOW COMMAND. RESPIRATION EVEN, UNLABOR ON 4L NC. FLACC 0. PATIENT WAS REPOSITIONED. NO DISTRESS NOTED AT THIS TIME. FAMILY AT BEDSIDE. CALL LIGHT WITHIN REACH
--- NOTE | 2018-10-24 14:00 | NUR ---
PATIENT WAS SLEEPING COMFORTABLY. RESPIRATION EVEN, UNLABOR ON 2L NC. NO DISTRESS NOTED AT THIS TIME
--- NOTE | 2018-10-24 14:16 | NUR ---
10/24/18 RD FOLLOW UP COMPLETED PLEASE REFER TO NUTRITION ASSESSMENT UNDER CARE ACTIVITY FOR ESTIMATED NUTRITIONAL NEEDS. 1. IF PT WILL BE ON HOSPICE, CONTINUE MECHANICAL SOFT CARDIAC DIET WITH ENSURE BID 2. IF FAMILY MEMBERS REFUSE HOSPICE CARE, RECOMMEND JEVITY 1.2 @ 65 ML/HR. -THIS WILL PROVIDE 1560 ML OF VOLUME, 1872 KCAL, AND 87 GM PROTEIN. IT MEETS 100% OF PT�S ENERGY AND PROTEIN NEEDS. 3. RECOMMEND [address] TO FOLLOW-UP 2-3 DAYS, HIGH RISK ABBI TAN RD
--- NOTE | 2018-10-24 14:54 | NUR ---
Glass Washer Note: Per therapeutic case manager Sherly from [facility] ext [phone], she needs clinical review to be fax to , I informed Rolan of this and provided her with fax and phone number of therapeutic case manager Sherly.
[2018-10-24 16:00] VITALS: BP 97/56
--- NOTE | 2018-10-24 16:00 | NUR ---
PATIENT WAS SLEEPING COMFORTABLY. RESPIRATION EVEN, UNLABOR ON 2L NC. FLACC 0. NO DISTRESS NOTED AT THIS TIME.
--- NOTE | 2018-10-24 17:57 | NUR ---
PATIENT WAS RESTING COMFORTABLY. RESPIRATION EVEN, UNLABOR ON 2L NC. NO DISTRESS NOTED AT THIS TIME. FAMILY AT BEDSIDE
--- NOTE | 2018-10-24 19:16 | NUR ---
ENDORSEMENT GIVEN TO FLAT KNITTER HELPER NURSE. PATIENT IS STABLE AT THIS TIME
--- NOTE | 2018-10-24 19:17 | NUR ---
RECEIVED PT IN STABLE CONDITION FROM AM NURSE. PT IS ON TELE MONITOR. AWAKE, BUT CONFUSED. ON O22L/NC. SAT 96%. ON BEDREST DUE TO GEN WEAKNESS. PT IS INCONTINENT. WITH FAMILY MEMBERS AT BEDSIDE. IVF INFUSING WELL ON THE LT HAND G#24. CLEAR AND PATENT. BED ON LOWEST POSITION. FREQUENT ROUNDS NEEDED. SIDE RAILS UP X2. WITH CALL LIGHT WITHIN EASY REACH. PLAN OF CARE DISCUSSED WITH PT/FAMILY. WILL CONTINUE TO MONITOR.
[2018-10-24 20:00] VITALS: BP 101/63
[2018-10-24] MEDS: ACETAMINOPHEN 325 MG TAB PO PRN (20:28)
--- NOTE | 2018-10-24 20:30 | NUR ---
PT ABLE TO TAKE ALL PO MEDS DUE FOR THE NIGHT WITH SOME APPLE SAUCE. TOLERATED WELL.
--- NOTE | 2018-10-24 21:30 | NUR ---
REPOSITIONED PT FOR COMFORT. INCONTINENT OF URINE. CLEANED AND KEPT DRY. PT YOEL BREAST FOLD WITH SOME REDNESS, SKIN INTACT. HYDRA GUARD APPLIED.
--- NOTE | 2018-10-24 22:00 | NUR ---
GRANDDAUGHTER, MAGDALENO TO STAY WITH PT DURING THE NIGHT.
--- NOTE | 2018-10-24 22:30 | NUR ---
MADE ROUNDS. PT STILL AWAKE. ASSISTED PT TO REPOSITION BY TURNING ON LT SIDE WITH PILLOW SUPPORT ON THE RT HIP .
[2018-10-25] VITALS: BP 91/56
--- NOTE | 2018-10-25 00:15 | NUR ---
IV ACCESS LT HAND G#24, LEAKING. DISCONTINUED. THEN A NEW IV ACCESS STARTED ON THE RT AC G#22 BY BONG DELGADOOIL PAINT SHADER. IVF INFUSING WELL.
--- NOTE | 2018-10-25 00:30 | NUR ---
PT REPOSITIONED AGAIN FOR COMFORT. NO S/S OF ANY PAIN NOTED. WILL CONTINUE TO MONITOR.
--- NOTE | 2018-10-25 02:00 | NUR ---
MADE ROUNDS. PT IS ASLEEP. NO DISTRESS NOTED.
--- NOTE | 2018-10-25 03:00 | NUR ---
PT REPOSITIONED FOR COMFORT. NO DISTRESS NOTED. WILL CONTINUE TO MONITOR.
[2018-10-25 04:30] VITALS: BP 100/61
--- NOTE | 2018-10-25 06:00 | NUR ---
HAS BEEN REPOSITIONED FOR COMFORT. HOB ELEVATED. TURNED TO LEFT SIDE WITH PILLOW SUPPORT ON THE SIDES AND LEGS. WITH CONTINUOS O22L/NC.
--- NOTE | 2018-10-25 07:08 | NUR ---
ENDORSED PT TO AM NURSE IN STABLE CONDITION FOR CONTINUITY OF CARE.
--- NOTE | 2018-10-25 07:30 | NUR ---
PATIENT WAS DROWSY, MOANING WHEN TOUCHED. RESPIRATION EVEN, UNLABOR ON 2L NC. SKIN DRY AND WARM. IV PATENT AND INTACT. FLACC 0. PATIENT WAS REPOSITIONED. FAMILY WAS AT BEDSIDE. PLAN OF CARE WAS DISCUSSED WITH PATIENT AND FAMILY. BED AT LOW POSITION, SIDE RAILS UP. CALL LIGHT WITHIN REACH
[2018-10-25] MEDS: ALBUTEROL 0.083% 2.5 MG/3 ML NEBU INH PRN (07:47)
[2018-10-25 08:00] VITALS: BP 82/52
[2018-10-25] MEDS: FUROSEMIDE 40 MG TAB PO SCH ×3 (09:00→21:00)
[2018-10-25] MEDS: CARVEDILOL 6.25 MG TAB PO SCH ×2 (09:39→20:40)
[2018-10-25] MEDS: MEXILETINE 150MG CAP PO SCH ×2 (09:40→20:41)
[2018-10-25] MEDS: APIXABAN 2.5 MG TAB PO SCH ×2 (09:44→20:40)
--- NOTE | 2018-10-25 09:45 | NUR ---
CARMEN ZAMORA CAME AND MEET WITH THE GRANDDAUGHTER AND PATIENT'S SON.
--- NOTE | 2018-10-25 10:20 | NUR ---
PATIENT WAS RESTING COMFORTABLY. RESPIRATION EVEN, UNLABOR ON 2L NC. NO DISTRESS NOTED AT THIS TIME
--- NOTE | 2018-10-25 11:51 | NUR ---
PATIENT WAS SLEEPING COMFORTABLY. RESPIRATION EVEN, UNLABOR ON 2L NC. FLACC 0. NO DISTRESS NOTED AT THIS TIME. FAMILY AT BEDSIDE. CALL LIGHT WITHIN REACH
[2018-10-25 12:00] VITALS: BP 113/67
[2018-10-25] MEDS: DEXT 5% /NACL 0.9% 1,000 ML IV SCH (12:00)
--- NOTE | 2018-10-25 14:00 | NUR ---
PATIENT WAS RESTING COMFORTABLY. RESPIRATION EVEN, UNLABOR ON 2L NC. NO DISTRESS NOTED AT THIS TIME. FAMILY AT BEDSIDE
[2018-10-25 16:00] VITALS: BP 96/66
--- NOTE | 2018-10-25 16:00 | NUR ---
PATIENT WAS RESTING COMFORTABLY. RESPIRATION EVEN, UNLABOR ON 2L NC. FLACC 0. NO DISTRESS NOTED AT THIS TIME. FAMILY AT BEDSIDE
--- NOTE | 2018-10-25 16:32 | NUR ---
Seo Coordinator Note: Per patient case coordinator Sherly from [facility] ext [phone], they do not cover palliative services, only hospice. Patient's son Nikole Stokes verbalized he was willing to speak with [facility] hospice staff. Tamiko from [facility] met and spoke with Nikole. Per Tamiko, Nikole does not want patient to receive hospice services and prefers for patient to be transfer to longterm facility. He does not think patient's granddaughter Molly Shepherd or patient's son Naeem Shepherd are able to take care of patient in their home. I have talked to Nikole multiple times this week. At times when Nikole speaks about what he would like for patient, he then quickly begins to speak about his own medical problems. He stated he has cancer and has heart problems. He verbalized he also has health insurance issues. He told me he was not feeling well. I offered to contact hospital staff to escort him to Emergency Room, he refused assistance. It is difficult to get him to refocus and obtain clear information about his personal problems he has expressed. Per patient's other son Naeem Shepherd, he thinks he has an existing Advance Directive and will look for it and bring it to hospital once he finds it.
[2018-10-25] MEDS: MORPHINE SULFATE 2 MG/ML SYR IVP PRN (17:50)
--- NOTE | 2018-10-25 17:50 | NUR ---
PATIENT WAS MOANING, APPEARED TO BE RESTLESS. PAIN MED WAS GIVEN PER ORDER
--- NOTE | 2018-10-25 18:15 | NUR ---
PATIENT WAS REPOSITIONED, IVF WAS CHANGED PER ORDER. IV PATENT AND INTACT. NO DISTRESS NOTED AT THIS TIME
--- NOTE | 2018-10-25 19:19 | NUR ---
ENDORSEMENT GIVEN TO USABILITY STRATEGIST NURSE. PATIENT WAS STABLE AT THIS TIME.
--- NOTE | 2018-10-25 19:20 | NUR ---
RECEIVED BEDSIDE REPORT FROM DAY SHIFT NURSE. PATIENT WAS LETHARGIC. OPEN EYES SPONTANEOUSLY. ABLE TO FOLLOW AND RESPONDS TO YES AND NO QUESTION ONLY. RESPIRATION EVEN UNLABORED ON 2L NC. FLACC 0. NO DISTRESS NOTED. SKIN IS WARM AND DRY. IV PATENT AND INTACT. ALL SAFETY MEASURES IN PLACE. BED IS AT LOW POSITION. CALL LIGHT WITHIN REACH. WILL CONTINUE TO MONITOR
[2018-10-25 20:00] VITALS: BP 97/59
--- NOTE | 2018-10-25 20:00 | NUR ---
INITIAL ASSESSMENT DONE. VITALS WERE TAKEN. PATIENT REPOSITIONED FOR COMFORT. WILL CONTINUE TO MONITOR
--- NOTE | 2018-10-25 21:00 | NUR ---
ALL SCHEDULED MEDS WERE GIVEN PER ORDER. WILL CONTINUE TO MONITOR
--- NOTE | 2018-10-25 22:00 | NUR ---
REPOSITIONED PATIENT AND PROVIDED GOOD PERINEAL CARE.
--- NOTE | 2018-10-25 23:00 | NUR ---
PATIENT SLEEPING RESPIRATION EVEN UNLABORED ON 2L NC. FLACC 0. NO DISTRESS NOTED. WILL CONTINUE TO MONITOR
[2018-10-26] VITALS: BP_SYST 101; BP_SYST 97; BP_DIAS 64; BP_DIAS 65
--- NOTE | 2018-10-26 | NUR ---
VITALS WERE TAKEN. REPOSITIONED PATIENT. PATIENT MOANING AND RESTLESS.WILL CONTINUE TO MONITOR
--- NOTE | 2018-10-26 00:30 | NUR ---
PATIENT WAS MOANING MORE THAN USUAL AND APPEARED TO BE RESTLESS. PAIN MED WAS GIVEN PER ORDER. WILL CONTINUE TO MONITOR
[2018-10-26] MEDS: MORPHINE SULFATE 2 MG/ML SYR IVP PRN ×2 (00:31→16:40)
--- NOTE | 2018-10-26 02:00 | NUR ---
PATIENT SLEEPING COMFORTABLY RESPIRATION EVEN UNLABORED ON 2L NC. NO DISTRESS NOTED. WILL CONTINUE TO MONITOR
[2018-10-26 04:00] VITALS: BP 98/58
--- NOTE | 2018-10-26 04:00 | NUR ---
VITALS WERE TAKEN. RESPIRATION EVEN UNLABORED ON 2L NC. NO DISTRESS NOTED. WILL CONTINUE TO MONITOR
--- NOTE | 2018-10-26 07:26 | NUR ---
ENDORSED PATIENT TO DAY SHIFT NURSE FOR CONTINUITY OF CARE. PATIENT CONDITION STABLE.
--- NOTE | 2018-10-26 07:27 | NUR ---
RECIEVED REPORT FROM PM NURSE AT THE BEDSIDE. PT LYING ON HER BED, SLIGHTLY MOANING. PT HAS IV ACCESS ON HER RT AC 18 G, IVF D5% INFUSING AT 40 ML/HR. PT IS DNR, WAITING FOR THE SNF PLACEMENT. PT FAMILY AGREED TO PLACE PT UNDER HOSPICE SERVICE. SS WORKING ON THE PLACEMENT, AWARE. ALL SAFETY MEASURE IN PLACE. WILL CONTINUE TO MONITOR PT.
[2018-10-26 08:00] VITALS: BP 90/46
[2018-10-26] MEDS: CARVEDILOL 6.25 MG TAB PO SCH ×2 (10:00→20:10)
[2018-10-26] MEDS: APIXABAN 2.5 MG TAB PO SCH ×2 (10:00→20:10)
[2018-10-26] MEDS: FUROSEMIDE 40 MG TAB PO SCH ×2 (10:00→20:13)
[2018-10-26] MEDS: MEXILETINE 150MG CAP PO SCH ×2 (10:00→20:13)
--- NOTE | 2018-10-26 10:11 | NUR ---
CHECKED ON PT. LYING ON HER BED, FAMILY AT THE BEDSIDE. APPEARS LETHARGIC, VS NOTED O2 SAT 98% NC 4LPM, BP 91/56, RR 16, HR 71, T 96.9 AT THIS TIME. PT REFUSED HER MEDS, UNABLE TO TAKE MEDS . PER FAMILY MEMBER, PT UNABLE TO EAT, REFUSED HER BREAKFAST IN AM. PT IS DNR. WAITING FOR THE SNF PLACEMENT. WILL CONTINUE TO MONITOR PT.
[2018-10-26 12:00] VITALS: BP 108/60
[2018-10-26] MEDS: DEXT 5% /NACL 0.9% 1,000 ML IV SCH (12:00)
--- NOTE | 2018-10-26 12:15 | NUR ---
CHECKED ON THE PT. STUDENT NURSE RECORDING HER VS. PT APPEARS CALM, NO DISTRESS NOTED AT THIS TIME. IVF INFUSING WELL. ALL SAFETY MEASURE IN PLACE. WILL CONTINUE TO MONITOR PT.
--- NOTE | 2018-10-26 15:03 | NUR ---
10/26/18 RD FOLLOW UP COMPLETED PLEASE REFER TO NUTRITION PROGRESS NOTE UNDER CARE ACTIVITY FOR ESTIMATED NUTRITION NEEDS. RD RECOMMENDATIONS: 1. CONTINUE MECHANICAL SOFT CARDIAC DIET WITH ENSURE BID 2. RD TO FOLLOW-UP 2-3 DAYS, HIGH RISK SYLWIA MEZA, RD
[2018-10-26 16:00] VITALS: BP 102/61
--- NOTE | 2018-10-26 16:45 | NUR ---
PT TOOK HER IV ACCES OUT FROM THE TIP, RECONNECTED AND FLUSHED WELL. PT MOANING WITH PAIN, ADMINISTERED PAIN MEDS ORDERED. FAMILY AT THE BEDSIDE. PT CHANGED AND REPOSITIONED BY ENFORCEMENT MANAGER AND THE STUDENT NURSE. WILL CONTINUE TO MONITOR PT.
--- NOTE | 2018-10-26 19:15 | NUR ---
ENDORSED PT TO PM NURSE AT BEDSIDE. PT IN STABLE CONDITION.
--- NOTE | 2018-10-26 19:30 | NUR ---
RECEIVED BEDSIDE REPORT FROM DAY SHIFT RN, PATIENT IN BED, ON 2 L NC, O2SART AT 95%. AAOX 1 TO PERSON. GRANDDAUGHTER AT BEDSIDE, QUESTIONS ANSWERED. IV IN RIGHT AC 20 G INFUSING D5W/NS AT 40 ML/HR. SR ON TELE MONITOR.
[2018-10-26 20:00] VITALS: BP 97/62
--- NOTE | 2018-10-26 20:31 | NUR ---
HELD COREG DUE TO BP 97/62 AND HELD ELIQUIS DUE TO PLATELETS 115. OTHER SCHEDULED MEDICATIONS GIVEN
--- NOTE | 2018-10-26 22:09 | NUR ---
PATIENT RESTING IN BED NO SIGNS OF DISTRESS, BED ALARM ON, GRANDDAUGHTER AT BEDSIDE.
[2018-10-27] VITALS: BP 114/60
[2018-10-27] MEDS: MORPHINE SULFATE 2 MG/ML SYR IVP PRN ×4 (00:43→18:46)
--- NOTE | 2018-10-27 00:43 | NUR ---
PATIENT SCREAMING, LOOKS LIKE SHES IN PAIN, MEDICATED WITH MORPHINE
--- NOTE | 2018-10-27 02:30 | NUR ---
PATIENT SCREAMING, WHEN ASKED WHAT IS WRONG PATIENT OR IF IN PAIN PATIENT IS UNABLE TO MAKE NEEDS KNOWN, REPOSITIONED FOR COMFORT, BED ALARM ON, FAMILY AT BEDSIDE.
[2018-10-27 04:00] VITALS: BP 105/62
--- NOTE | 2018-10-27 04:00 | NUR ---
V/S TAKEN BP 105/62, NO SIGNS OF DISTRESS OR PAIN AT THIS TIME.
--- NOTE | 2018-10-27 06:33 | NUR ---
PATIENT RESTING MORE COMFORTABLY IN BED AFTER MORPHINE ADMINISTRATION.
--- NOTE | 2018-10-27 07:18 | NUR ---
ENDORSED PATIENT TO DAY SHIFT NURSE, PATIENT STABLE.
--- NOTE | 2018-10-27 07:19 | NUR ---
RECEIVED REPORT FROM PM NURSE AT BEDSIDE. PT SLEEPING ON HER BED AT THIS TIME. GRANDDAUGHTER AT THE BEDSIDE. PT HAS LOW BP AT THIS TIME. WILL MEASURE BP WHEN PT IS MORE AWAKE, PT WAS ADMINISTERED MORPHINE AROUND 0500 AM. PT APPEARS MORE CALM AT THIS TIME. NO SIGN OF DISTRESS . PT HAS RT AC 18 G IV ACCESS, HAS D5 NS INFUSING WELL. ALL SAFETY MEASURE IN PLACE. WILL CONTINUE TO MONITOR PT.
[2018-10-27 08:00] VITALS: BP 87/51
[2018-10-27] MEDS: APIXABAN 2.5 MG TAB PO SCH ×2 (09:00→21:54)
[2018-10-27] MEDS: MEXILETINE 150MG CAP PO SCH ×2 (09:00→21:50)
[2018-10-27] MEDS: CARVEDILOL 6.25 MG TAB PO SCH ×2 (09:00→21:49)
[2018-10-27] MEDS: FUROSEMIDE 40 MG TAB PO SCH ×2 (09:00→21:48)
--- NOTE | 2018-10-27 09:45 | NUR ---
CHECKED ON THE PT . SLEEPING ON HER BED. PT UNABLE TO TAKE HER BREAKFAST, HOLD HER AM MEDS AT THIS TIME. VS NORMAL . BP 10//64, O2 975 ON O2 2LPM, HR 70. FAMILY TA THE BEDSIDE. NO SIGN OF DISTRESS NOTED. PT SLEEPING COMFORTABLY IN HER BED. WILL CONTINUE TO MONITOR PT.
--- NOTE | 2018-10-27 11:28 | NUR ---
CHECKED ON THE PT. SLEEPING, SLIGHTLY AGITATED. ASKED PT FAMILY IF SHE WAS ABLE TO EAT ANYTHING, STATES PT UNABLE TO EAT AT THIS TIME. WILL CONTINUE TO MONITOR PT.
[2018-10-27 12:00] VITALS: BP 108/72
[2018-10-27] MEDS: DEXT 5% /NACL 0.9% 1,000 ML IV SCH ×2 (12:00→21:52)
--- NOTE | 2018-10-27 13:58 | NUR ---
ADMINISTERED PAIN MEDS FOR PT ORDERED. PT HAS FACIAL GRIMACING, MOVING HER EXTREMITY AND MOANING WITH PIAN. VS RECORDED NORMAL. BP 106/69, HR 70, O2 SAT 99% ON O2 2LPM. WILL CONTINUE TO MONITOR PT. PT NOT ABLE TO EAT, HAS VERY POOR APPETITE. FAMILY AT THE BEDSIDE.WILL CONTINUE TO MONITOR PT.
[2018-10-27 16:00] VITALS: BP 102/60
--- NOTE | 2018-10-27 19:48 | NUR ---
ENDORSED PT TO PM NURSE AT BEDSIDE. PT IN STABLE CONDITION.
--- NOTE | 2018-10-27 19:49 | NUR ---
RECEIVED PT FROM FIFI RN PT OPEN EYES WHEN WE CALL HER NAME, , CONFUSED FOLLOW SIMPLE COMMANDS LIKE OPEN MOUTH WITH VERY DIFFICULTY RELATIVE AT BED SIDE VERBALIZED PT DOES NOT WANT OT EAT AND AWARE , ON TELEMETRY SR BBB , IV ON RT FA INFUSING WELL , SKIN IS INTACT , PT REPOSITIONED INITIAL ASSESSMENT DONE
[2018-10-27 20:00] VITALS: BP 101/63
--- NOTE | 2018-10-27 21:00 | NUR ---
DR FRIEDMAN Y WAS HERE AND I NOTIFY PT CONDITION ;AND VITAL SIGNS AND DR FRIEDMAN SAID GIVE ALL MEDICATION ORDER AND WE FOLLOW ORDERS
[2018-10-27] MEDS: ACETAMINOPHEN 325 MG TAB PO PRN (21:59)
--- NOTE | 2018-10-27 22:00 | NUR ---
PT WAS TAKEN WELL ALL MEDIC CRASH WITH APPLE SAUCE RELATIVE AT BED SIDE
--- NOTE | 2018-10-28 | NUR ---
PT REPOSITIONED LINEN CHANGED HR 70 , 02 SAT 95% PT SLEEPING NOT DISTRESS NOTED AT THIS TIME , ON TELEMETRY SR BBB AND ARTIFACT RELATIVE AT BED SIDE
[2018-10-28 00:05] VITALS: BP 85/67
--- NOTE | 2018-10-28 01:00 | NUR ---
WENT BY TO CHECK ON PT, NURSES WERE BUSY WITH PT.
--- NOTE | 2018-10-28 01:39 | NUR ---
AT 0139 HR 35 , PT [id number], BLOOD PRESSURE NOT REEDING NOT 02 SAT . PT DNR RELATIVE AST BED SIDE , CHARGE NURSE ANDREW AT BED SIDE PT ON CLOSE MONITORING DR TINOCO IS CALLING BY CHARGE NURSE WAITING FOR HIM TO CALL BACK
--- NOTE | 2018-10-28 01:49 | NUR ---
ASYSTOLE, NOT BREATHING, NOT HEART RATE, NOT RESPONSIVE RELATIVE AT BED SIDE, PT IS DNR FAMILY WAS CALL TO NOTIFY PT CONDITION
--- NOTE | 2018-10-28 01:57 | NUR ---
DR BILL CARLIN PRONOUNCE , FAMILY AT BED SIDE, PT SON LYNNE TORRES WAS CALLED AND NOTIFY, AND DR TINOCO WAS CALLED AGAIN TO BE INFORMED, AND MARKING DEVICES ASSEMBLER
--- NOTE | 2018-10-28 02:15 | NUR ---
RECORD OF PROTOCOL WAS FILLING OUT
--- NOTE | 2018-10-28 04:35 | NUR ---
WENT BACK IN TO CHECK ON PT, GRAND-DAUGHTER BY BEDSIDE INFORMED ME PT , LEFT FAMILY ALONE WITH PT.
--- NOTE | 2018-10-28 05:10 | NUR ---
DR THAPA RETURN CALL INFORM HIM THAT PATIENT OF DR TINOCO AT O157, PRONOUNCED BY ER .
--- NOTE | 2018-10-28 07:22 | NUR ---
STILL WAITING FOR PT SON MELISSA BATISTA HE WILL GIVE US THE NAME OF THE MORTUARY AND HIS ADDRESS PT IS ENDORSED TO [facility] CHARGE NURSE
--- NOTE | 2018-10-28 12:08 | NUR ---
Talked to Naeem son, gave phone number of [facility] and made aware I talked to Daina, body can be picked up per family request, Naeem will call us back, hector charge nurse aware.
--- NOTE | 2018-10-28 14:08 | NUR ---
TALKED TO MELISSA SON AGAIN, THAT HE REALLY NEED TO AGREE FOR ROSELINE HAGAN TO [employer] FLATBED TRUCK DRIVER THE BODY, HE SAID HE WILL CALL ROSELINE HAGAN AGAIN RIGHT NOW AND HE WILL CALL ME BACK.
--- NOTE | 2018-10-28 14:22 | NUR ---
Talked to brandyn Blake no call from family.
--- NOTE | 2018-10-28 14:28 | NUR ---
Call place to torito chapman no answer leave message in answering machine.
--- NOTE | 2018-10-28 14:37 | NUR ---
call place to another phone number [phone] mail box full
--- NOTE | 2018-10-28 14:39 | NUR ---
talked to torito, he said he is another line , talking to a mortuary and will call us back.
--- NOTE | 2018-10-28 14:54 | NUR ---
FOLLOW UP CALL MADE TO MELISSA LEFT MESSAGE IN THE PHONE, THAT HE NEED TO AGREE TO ROSELINE TO RADIOLOGIST PHYSICIAN BODY,WILL ENDORSED TO [place].
--- NOTE | 2018-10-28 15:00 | NUR ---
CALL PLACE AGAIN TO MELISSA LEFT MESSAGE IN ANSWERING MACHINE
--- NOTE | 2018-10-28 15:05 | NUR ---
CALL PLACE AGAIN TO ROSELINE SPOKE TO Sarah ,PER Sarah FAMILY OF XIN Lazar DOESNT CALL BACK YET.
--- NOTE | 2018-10-28 15:08 | NUR ---
FAMILY DOESNT ANSWER PHONE CALL.
--- NOTE | 2018-10-28 15:11 | NUR ---
CALL PLACE AGAIN TO Violet Blas [phone] LEFT MESSAGE THAT IF HE DOESNT CALL US BACK BY 4PM THE BODY WILL BE SEND TO ROSELINE HAGAN.
--- NOTE | 2018-10-28 15:19 | NUR ---
GRANDDAUGHTER MS BATISTA CALLED TO PROVIDE INFORMATION FOR MORTUARY : [place] [address], /[phone], CALLED [facility] FOR WHAT JOB TITLES MEAN TIME, THEY NEED AUTHORIZATION TO RELEASE REMAINS FROM FAMILY BEFORE THEY CAN ARRANGE WHAT JOB TITLES MEAN TIME. WILL CONTACT FAMILY.
--- NOTE | 2018-10-28 15:48 | NUR ---
CALLED SON MELISSA BATISTA AT [phone], VERBAL TELEPHONE CONSENT OBTAINED FROM MELISSA TO RELEASE REMAINS TO [facility]. [facility] CALLED AT [phone], SPOKE TO JOSIAS REGARDING LEGAL BILLER, THEY WILL SEND SOMEONE NOW.
--- NOTE | 2018-10-28 15:55 | NUR ---
MELISSA BATISTA CALLED TO SAY THAT HIS MOTHER'S REMAINS CAN'T BE RELEASED TO [facility] UNTIL THE AUTOPSY IS DONE, INFORMED MELISSA THAT [facility] HAS RELEASED THE REMAINS AND THEY WILL NOT BE DOING A AUTOPSY, MELISSA WAS INFORMED THAT PRIVATE AUTOPSY IS AN OPTION FAMILY CAN CHOOSE AT THEIR EXPENSE. MELISSA STATED THAT HE WILL CALL US BACK WITH INFORMATION OF WHO WILL DO THE AUTOPSY.
--- NOTE | 2018-10-28 16:10 | NUR ---
GRANDDAUGHTER MS BATISTA CALLED AT [phone] TO SEE IF WE CAN STILL RELEASE THE REMAINS TO [facility] WHILE THE FAMILY MAKES THE DECISION ON AUTOPSY. SHE WILL SPEAK WITH MELISSA AND CALL US BACK.
--- NOTE | 2018-10-28 17:00 | NUR ---
PER MELISSA BATISTA, JAYY'S REMAINS CAN BE RELEASED TO [facility], WILL CALL SARAY NOW.
--- NOTE | 2018-10-28 17:50 | NUR ---
[facility] ([facility]) HERE TO PICK HER UP, REMAINS VIRIFIED WITH 2 RN'S AND RELEASED. PATIENT'S PERSONAL BELONGINGS IN SECURITY LOCKER TO BE RELEASED TO MELISSA BATISTA ONLY PER MELISSA BATISTA.
== END 2018-10-28 01:57 | disposition expired | DRG 682 ==
LOC: MED 08:36 → MMU 10:35 → MIC 16:22 → MTU 10-16 12:40 → MIC 10-17 10:40 → MTU 10-21 18:30
PROVIDERS: ADMIT Internal Medicine Pulmonary Disease; ATTEND Internal Medicine Pulmonary Disease
DX: N17.0 Acute kidney failure with tubular necrosis (principal); G93.41 Metabolic encephalopathy; I13.0 Hypertensive heart and chronic kidney disease with heart failure and stage 1 through stage 4 chronic kidney disease, or unspecified chronic kidney disease; I47.2 Ventricular tachycardia; I50.20 Unspecified systolic (congestive) heart failure; I48.2 Chronic atrial fibrillation; I25.5 Ischemic cardiomyopathy; E78.5 Hyperlipidemia, unspecified; I25.10 Atherosclerotic heart disease of native coronary artery without angina pectoris; N18.3 Chronic kidney disease, stage 3 (moderate); I07.1 Rheumatic tricuspid insufficiency; I46.9 Cardiac arrest, cause unspecified; J45.909 Unspecified asthma, uncomplicated; Z51.5 Encounter for palliative care; Z66 Do not resuscitate; D64.9 Anemia, unspecified; I27.21 Secondary pulmonary arterial hypertension; Z79.01 Long term (current) use of anticoagulants; Z95.1 Presence of aortocoronary bypass graft; Z95.810 Presence of automatic (implantable) cardiac defibrillator; Z88.5 Allergy status to narcotic agent; Z88.0 Allergy status to penicillin; Z91.041 Radiographic dye allergy status
CPT/HCPCS: 36415; 36600; 70450; 71045; 73502; 76770; 80048; 80053; 81001; 82140; 82150; 82550; 82803; 83690; 83735; 83880; 84100; 84436; 84443; 84484; 85025; 85610; 85730; 87081; 93005; 94640; 96360; 97110; 97161-GP; 97530; 99285; C1758; J0282; J1265; J1630; J2060; J2270; J7030; J7042; J7060; J7613; P9041; Q0092